=== PATIENT | male | born 1940 | race Caucasian/White ===

== ENCOUNTER 2021-09-08 22:23 | Inpatient (IN) | payer MEDICARE ==
[~2021-09-08] VITALS: Ht 182.9 cm; Wt 124.0 kg
--- NOTE | 2021-09-08 22:35 | PHYS DOC ---
Past Medical History Past Medical History: A-Fib, CHF, COPD Past Surgical History: No Surgical History Smoking Status: Heavy Tobacco Smoker Alcohol Use: None Drug Use: None General Adult EDM: Chief Complaint: SHORTNESS OF BREATH HPI: HPI: 81 year old male with history of COPD, CHF, not on supplemental O2 at home presents complaining of shortness of breath over the past 4 days along with cough that has been dry which is atypical for him, he states he usually has a productive cough at baseline and he is easily able to clear his throat but his cough changed recently to more of a dry cough where he feels he "can't get his secretions out". He was found to be hypoxic to 80% on RA in the field and was placed on a NRB by EMS in the field raising his SPO2 up to mid 90s. He has never been admitted for his COPD in the past. The patient denies nausea, vomiting, fever, chills, chest pain, abdominal pain, urinary symptoms, recent trauma, or any other complaints. Review of Systems: Review of Systems: Constitutional: Negative except what was mentioned in HPI. Eyes: Negative except what was mentioned in HPI. HENT: Negative except what was mentioned in HPI. Respiratory: Negative except what was mentioned in HPI. Cardiovascular: Negative except what was mentioned in HPI. GI: Negative except what was mentioned in HPI. : Negative except what was mentioned in HPI. Musculoskeletal: Negative except what was mentioned in HPI. Integument: Negative except what was mentioned in HPI. Neurologic: Negative except what was mentioned in HPI. Endocrine: Negative except what was mentioned in HPI. Lymphatic: Negative except what was mentioned in HPI. Psychiatric: Negative except what was mentioned in HPI. Heart Score: C/O Chest Pain: No Family History: Family History: Noncontributory Allergies: Allergies: Allergies Coded Allergies Type Severity Reaction Last Updated Verified NSAIDS (Non-Steroidal Anti-Inflamma Allergy Intermediate 09/08/21 Yes [id number]-[id number]-YrD Reductase Inhibitor Allergy Intermediate 09/08/21 Yes fish oil Allergy Intermediate 09/08/21 Yes Physical Exam: PE: Constitutional: No acute distress, non-toxic appearance. HENT: Atraumatic, bilateral external ears normal, nose normal. Eyes: PERRLA, EOMI, conjunctiva normal, no discharge. Neck: Normal range of motion, supple, no stridor. Cardiovascular: Heart rate regular rhythm. 2+ radial pulses Lungs & Thorax: Moderate respiratory distress, symmetrical expansion, rhonchi appreciated bilateral wheeze on expiration. Abdomen: Soft, no tenderness Skin: Warm, dry. Extremities: No tenderness, no cyanosis, ROM intact, no edema. Neurologic: Alert and oriented x3, no focal deficits. Psychologic: Affect normal, judgment normal, mood normal. Current Patient Data: Labs: Laboratory Tests Test 09/08/21 23:10 09/09/21 01:00 09/09/21 01:40 09/09/21 02:00 O2 Saturation 92 % (92-99) Arterial Blood pH 7.44 (7.35-7.45) Arterial Blood pCO2 at Patient Temp 34 mmHg (35-46) Arterial Blood pO2 at Patient Temp 62 mmHg (65-108) Arterial Blood HCO3 22 mmol/L (21-28) Arterial Blood Base Excess -1 mmol/L (-3-3) FiO2 28 White Blood Count 9.7 x10^3/uL (4.0-11.0) Red Blood Count 4.47 x10^6/uL (4.30-5.70) Hemoglobin 14.9 g/dL (13.0-17.5) Hematocrit 44.0 % (39.0-53.0) Mean Corpuscular Volume 99 fL (79-100) Mean Corpuscular Hemoglobin 33 pg (25-35) Mean Corpuscular Hemoglobin Concent 34 g/dL (31-37) Red Cell Distribution Width 16.4 % (11.5-14.5) Platelet Count 258 x10^3/uL (140-400) Neutrophils (%) (Auto) 72 % (31-73) Lymphocytes (%) (Auto) 18 % (24-48) Monocytes (%) (Auto) 10 % (0-9) Eosinophils (%) (Auto) 0 % (0-3) Basophils (%) (Auto) 0 % (0-3) Neutrophils # (Auto) 6.9 x10^3/uL (1.8-7.7) Lymphocytes # (Auto) 1.7 x10^3/uL (1.0-4.8) Monocytes # (Auto) 0.9 x10^3/uL (0.0-1.1) Eosinophils # (Auto) 0.0 x10^3/uL (0.0-0.7) Basophils # (Auto) 0.0 x10^3/uL (0.0-0.2) D-Dimer (Kaylin) 0.54 ug/mlFEU (0.00-0.50) Sodium Level 141 mmol/L (136-145) Potassium Level 4.1 mmol/L (3.5-5.1) Chloride Level 107 mmol/L (98-107) Carbon Dioxide Level 27 mmol/L (21-32) Anion Gap 7 (6-14) Blood Urea Nitrogen 19 mg/dL (8-26) Creatinine 1.4 mg/dL (0.7-1.3) Estimated GFR (Cockcroft-Gault) 48.9 Glucose Level 172 mg/dL (70-99) Lactic Acid Level 2.9 mmol/L (0.4-2.0) Calcium Level 8.5 mg/dL (8.5-10.1) GL-Kfs-U-Type Natriuretic Peptide 1908 pg/mL (0-449) Influenza Type A Antigen Negative (NEGATIVE) Influenza Type B Antigen Negative (NEGATIVE) SARS-CoV-2 Antigen (Rapid) Negative (NEGATIVE) Vital Signs: Vital Signs Date Time Temp Pulse Resp B/P (MAP) Pulse Ox O2 Delivery O2 Flow Rate FiO2 09/08/21 23:15 90 Nasal Cannula 2.0 EKG: EKG: Normal sinus rhythm rate of 87, right bundle branch block, occasional PVC. Impression: No STEMI interpreted by meJose D.O. Radiology/Procedures: Radiology/Procedures: EXAM: AP View of the chest DATE: 09/08/2021 10:33 PM INDICATION: Reason: shortness of breath / Spl. Instructions: / History: COMPARISON: No Prior FINDINGS: Heart is mildly enlarged. Aorta is tortuous. Diffuse bilateral lung base airspace opacities. Small pleural effusions. No pneumothorax. IMPRESSION: Diffuse bilateral parenchymal airspace opacities likely consolidative process such as pneumonia. Electronically signed by: Diego Patel MD (09/08/2021 11:02 PM) Course & Med Decision Making: Course & Med Decision Making Patient with new supplemental oxygen requirement, evidence for pneumonia on x- ray, will start antibiotics and admit him to the hospital. He is on a CPAP at night. He is stable clinically on oxygen with sats that are appropriate for his level of COPD. Labs were delayed secondary to another critical patient arriving. Age-adjusted D-dimer was negative Lactic acidosis likely secondary to hypoxia, fluids withheld secondary to patient tolerance with history of CHF My Orders - JOSE POOL DO Procedure Category Date Status Time Cbc W Autodiff LAB 09/08/21 Logged 22:29 Basic Metabolic Panel LAB 09/08/21 Logged 22:29 D-Dimer LAB 09/08/21 Logged 22:29 Nt-Pro Bnp LAB 09/08/21 Logged 22:29 12 Lead Ekg EKG 09/08/21 Logged 22:29 Chest Ap Only RAD 09/08/21 Resulted 22:29 Arterial Puncture RT 09/08/21 Complete Withdraw Bld Abg Only LAB 09/08/21 Logged 22:29 Albuterol Neb Soln PHA 09/08/21 Complete (Ventolin Neb Soln) 23:00 Ipratrpium/Albuterol PHA 09/08/21 Complete 0.5/2.5mg (Duoneb) 23:00 Prednisone PHA 09/08/21 Complete (Prednisone) 23:00 Pulse Oximetry: NASRA 09/08/21 In Process Standing Order 22:29 Airway Inhalation RT 09/08/21 Complete Treatment 22:29 Airway Inhalation RT 09/08/21 Complete Treatment 22:29 Sars Cov2 (Tiara) LAB 09/08/21 Logged 22:30 Sars Antigen Yola Rapid LAB 09/08/21 Logged 22:30 Influenza A&B Rapid LAB 09/08/21 Logged 22:30 Ceftriaxone Iv Push PHA 09/09/21 In Process (Rocephin) 01:00 Azithrmycn 500mg Ivpb PHA 09/09/21 In Process For Omni (Zithroma 01:00 Lactic Acid With LAB 09/09/21 Logged Reflex 00:30 Blood Culture EVELYNE 09/09/21 Logged 00:30 [place] Order ADT 09/09/21 Transmitted 00:52 Code Status CODE 09/09/21 Transmitted 00:52 Vital Signs, Per Unit NASRA 09/09/21 In Process Protocol 00:52 Cardiac DIET 09/09/21 Transmitted Breakfast Ambulate With NASRA 09/09/21 In Process Assistance 00:52 Ondansetron Pf PHA 09/09/21 In Process (Zofran) 01:00 Acetaminophen PHA 09/09/21 In Process (Tylenol) 01:00 Consult Physician By CONS 09/09/21 Transmitted Name 00:52 Food Preservation Scientist NASRA 09/09/21 In Process 00:52 Vital Signs Q4h NASRA 09/09/21 In Process 00:52 Cpap W/Titration RT 09/09/21 Logged May Use Home NASRA 09/09/21 In Process Cpap/Bipap 00:52 Departure Departure Impression: Primary Impression: Pneumonia Disposition: ADMITTED INPATIENT Admitting Physician: CASTRO Blake) Condition: STABLE Referrals: UNKNOWN PCP NAME (PCP) JOSE POOL DO Sep 08, 2021 22:35
[2021-09-08] MEDS: predniSONE 10 MG TABLET PO ONE (23:00)
[2021-09-08] MEDS ORDERED: IPRATRPIUM/ALBUTEROL 0.5/2.5MG 3 ML NEBU. NEB ONE (23:00)
[2021-09-08] MEDS ORDERED: ALBUTEROL SULFATE 2.5 MG/3 ML NEBU. NEB ONE (23:00)
--- NOTE | 2021-09-08 23:04 | RAD ---
EXAM: AP View of the chest DATE: 09/08/2021 10:33 PM INDICATION: Reason: shortness of breath / Spl. Instructions: / History: COMPARISON: No Prior FINDINGS: Heart is mildly enlarged. Aorta is tortuous. Diffuse bilateral lung base airspace opacities. Small pleural effusions. No pneumothorax. IMPRESSION: Diffuse bilateral parenchymal airspace opacities likely consolidative process such as pneumonia. Electronically signed by: Diego Patel MD (09/08/2021 11:02 PM) EMMETT
[2021-09-09] MEDS ORDERED: AZITHRMYCN 500MG IVPB FOR OMNI 250 ML IV ONE (01:00)
[2021-09-09] MEDS ORDERED: ONDANSETRON PF 4 MG/2 ML VIAL. IVP PRN ×2 (01:00→09:15)
[2021-09-09] MEDS ORDERED: cefTRIAXone IV Push 1 GM VIAL. IVP ONE (01:00)
[2021-09-09] MEDS ORDERED: ACETAMINOPHEN 325 MG TABLET. PO PRN (01:00)
--- NOTE | 2021-09-09 01:00 | EKG ---
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
[2021-09-09 01:40] LABS: BASO % 0 % (0-3); EOS % 0 % (0-3); HEMOGLOBIN 14.9 g/dL (13.0-17.5); LYMPH # 1.7 x10^3/uL (1.0-4.8); LYMPH % 18 % (24-48); MEAN CORPUSCULAR HEMOGLOBIN 33 pg (25-35); MEAN CORPUSCULAR HGB CONC 34 g/dL (31-37); MEAN CORPUSCULAR VOLUME 99 fL (79-100); MONO # 0.9 x10^3/uL (0.0-1.1); MONO % 10 % (0-9); NEUT # 6.9 x10^3/uL (1.8-7.7); NEUT % 72 % (31-73); PLATELET COUNT 258 x10^3/uL (140-400); RED BLOOD COUNT 4.47 x10^6/uL (4.30-5.70); RED CELL DISTRIBUTION WIDTH 16.4 % (11.5-14.5); WHITE BLOOD COUNT 9.7 x10^3/uL (4.0-11.0)
[2021-09-09 02:13] LABS: INFLUENZA A PATIENT NEGATIVE (NEGATIVE); INFLUENZA B PATIENT NEGATIVE (NEGATIVE)
[2021-09-09 02:26] LABS: CALCIUM 8.5 mg/dL (8.5-10.1); CREATININE 1.4 mg/dL (0.7-1.3); GFR 48.9; POTASSIUM 4.1 mmol/L (3.5-5.1)
[2021-09-09] MEDS ORDERED: predniSONE 10 MG TABLET PO ONE (02:30)
[2021-09-09 03:00] VITALS: BP 161/63
[2021-09-09 03:01] LABS: BASE EXCESS ABG -1 mmol/L (-3-3); FIO2 ABG 28; HCO3 ABG 22 mmol/L (21-28); PCO2 ABG 34 mmHg (35-46); PO2 ABG 62 mmHg (65-108); SAT O2 ABG 92 % (92-99)
[2021-09-09 07:00] VITALS: BP 153/82
[2021-09-09] MEDS ORDERED: UMEC1DIS IH (07:43)
[2021-09-09] MEDS ORDERED: COLC0.6T34 PO (07:43)
[2021-09-09] MEDS ORDERED: EVOL140P3 SQ (07:43)
[2021-09-09] MEDS ORDERED: ALLO300T PO (07:43)
[2021-09-09] MEDS ORDERED: TELM80TA PO (07:43)
[2021-09-09] MEDS ORDERED: TRAM50TA PO (07:43)
[2021-09-09] MEDS ORDERED: GLIP5TAB10 PO (07:43)
[2021-09-09] MEDS ORDERED: GABA300C18 PO (07:43)
[2021-09-09] MEDS ORDERED: PROAIR RESPICL90 MCG IH (07:43)
[2021-09-09] MEDS ORDERED: LIRA0.6P2 SQ (07:43)
[2021-09-09] MEDS ORDERED: GLIP10TA13 PO (07:43)
[2021-09-09] MEDS ORDERED: traMADol 50 MG TABLET PO PRN (09:15)
[2021-09-09] MEDS ORDERED: ZOLPIDEM 5 MG TABLET. PO PRN (09:15)
[2021-09-09] MEDS ORDERED: ELECTROLYTE (NON-ICU) PROTOCOL. MC PRN (09:15)
[2021-09-09] MEDS ORDERED: CALCIUM CARBONATE 500 MG TAB.CHEW PO PRN (09:15)
[2021-09-09] MEDS ORDERED: guaiFENesin/CODEINE 100mg/10mg 5 ML LIQUID PO PRN (09:15)
[2021-09-09] MEDS ORDERED: FUROSEMIDE 40 MG/4 ML VIAL. IVP ONE ×2 (09:30→14:00)
[2021-09-09] MEDS ORDERED: DEXTROSE 50% 25 GM / 50ML DISP.SYRIN. IV PRN (09:30)
[2021-09-09] MEDS: predniSONE 20 MG TABLET PO SCH (09:41)
[2021-09-09] MEDS: ACETAMINOPHEN 325 MG TABLET. PO PRN ×2 (09:42→23:54)
--- NOTE | 2021-09-09 09:42 | PDOC1 ---
History and Physical Date of Service: DOS: DATE: 09/09/21 TIME: 09:26 Chief Complaint: Problems: (1) Pneumonia Chief Complain: Shortness of breath History of Present Illness: HPI: This patient is 81-year-old white male presented to the emergency room overnight due to worsening shortness of breath for the past 4 to 5 days. Patient has a long tobacco use history he still does smoke and has history of COPD, uses CPAP at night; said he does have a chronically productive cough that usually does not bother him. However he said with this current cough there is more productivity to where he is having trouble handling some of his secretions. He denies any home oxygen but felt like he could not catch his breath at home yesterday. Contacted EMS found him saturating 80% on room air in the field was brought in and nonrebreather brought him up in the 90s. Denies any history of COPD e xacerbations he knows of. Reports compliance with inhalers. Received Covid vaccine both Moderna I evaluated the patient this morning and he was resting in bed on 2 L nasal cannula. He was doing well did not have any major complaints. Was requesting to get a line to cant hooker his CPAP so he could take a nap. Says he is unable to sleep without his CPAP. He is denying any fever chills, dizziness, vision changes, chest pain, abdominal pain, dysuria. Did notice on his chart there was a history of A. fib documented but patient not on any sort of rate control rhythm control or anticoagulation. When I asked him about it he said he thinks he was told he had A. fib in the past wants but never really followed up on it. Telemetry here I cannot see any A. fib. Past Medical/Surgical History: PMH/PSH: COPD, CHF, possible history of A. fib? Type 2 diabetes Allergies: Allergies: Coded Allergies: NSAIDS (Non-Steroidal Anti-Inflamma (Verified Allergy, Intermediate, 09/08/21) [id number] Reductase Inhibitor (Verified Allergy, Intermediate, 09/08/21) fish oil (Verified Allergy, Intermediate, 09/08/21) Family History: Family History: Reviewed with patient he reports hypertension throughout his whole family Social History: Social History: Daily tobacco use or smoking. Denies alcohol or drug use Current Medications: Current Medications Current Medications Albuterol Sulfate (Ventolin Neb Soln) 2.5 mg 1X ONCE NEB Last administered on 09/08/21at 23:00; Start 09/08/21 at 23:00; Stop 09/08/21 at 23:01; Status DC Albuterol/ Ipratropium (Duoneb) 3 ml 1X ONCE NEB Last administered on 09/08/21at 23:00; Start 09/08/21 at 23:00; Stop 09/08/21 at 23:01; Status DC Prednisone (Prednisone) 50 mg 1X ONCE PO Last administered on 09/08/21at 23:00; Start 09/08/21 at 23:00; Stop 09/08/21 at 23:01; Status DC Ceftriaxone Sodium (Rocephin) 2 gm 1X ONCE IVP Last administered on 09/09/21at 01:34; Start 09/09/21 at 01:00; Stop 09/09/21 at 01:01; Status DC Azithromycin 250 ml @ 250 mls/hr 1X ONCE IV Last administered on 09/09/21at 01:34; Start 09/09/21 at 01:00; Stop 09/09/21 at 01:59; Status DC Ondansetron HCl (Zofran) 4 mg PRN Q8HRS PRN IVP NAUSEA/VOMITING 1ST CHOICE; Start 09/09/21 at 01:00; Stop 09/09/21 at 09:11; Status DC Acetaminophen (Tylenol) 650 mg PRN Q4HRS PRN PO FEVER > 100.3'F; Start 09/09/21 at 01:00; Stop 09/10/21 at 00:59 Prednisone (Prednisone) 50 mg 1X ONCE PO Last administered on 09/09/21at 02:23; Start 09/09/21 at 02:30; Stop 09/09/21 at 02:31; Status DC Ampicillin Sodium/ Sulbactam Sodium 3 gm/Sodium Chloride 100 ml @ 200 mls/hr Q6HRS IV ; Start 09/09/21 at 12:00 Doxycycline Hyclate (Vibra-Tab) 100 mg BID PO ; Start 09/09/21 at 10:00 Albuterol/ Ipratropium (Duoneb) 3 ml RTQID NEB ; Start 09/09/21 at 12:00 Guaifenesin/ Codeine Phosphate (Robitussin Ac) 5 ml PRN Q6HRS PRN PO COUGH; Start 09/09/21 at 09:15 Prednisone (Prednisone) 40 mg DAILY PO ; Start 09/09/21 at 09:30 Allopurinol (Zyloprim) 300 mg DAILY PO ; Start 09/09/21 at 09:30 Gabapentin (Neurontin) 300 mg TID PO ; Start 09/09/21 at 09:30 Tramadol HCl (Ultram) 50 mg TID PRN PRN PO PAIN; Start 09/09/21 at 09:15 Losartan Potassium (Cozaar) 100 mg DAILY PO ; Start 09/09/21 at 09:30 Non-Formulary Medication (Umeclidinium Brm/Vilanterol Tr (Anoro Ellipta 62.5-25 Mcg Inh)) 1 each DAILY IH ; Start 09/10/21 at 09:00; Status UNV Ondansetron HCl (Zofran) 4 mg PRN Q6HRS PRN IVP NAUSEA/VOMITING; Start 09/09/21 at 09:15 Calcium Carbonate/ Glycine (Tums) 500 mg PRN Q3HRS PRN PO UPSET STOMACH; Start 09/09/21 at 09:15 Zolpidem Tartrate (Ambien) 5 mg PRN QHS PRN PO INSOMNIA, MAY REPEAT IN 1HR; Start 09/09/21 at 09:15 Info (Non-Icu Electrolyte Protocol) 1 ea PRN DAILY PRN MC SEE COMMENTS; Start 09/09/21 at 09:15 Acetaminophen (Tylenol) 650 mg PRN Q6HRS PRN PO Headaches, Temp > 101.5F; Start 09/09/21 at 09:15 Senna/Docusate Sodium (Senna Plus) 1 tab BID PO ; Start 09/09/21 at 09:30 Heparin Sodium (Porcine) (Heparin Sodium) 5,000 unit Q8HRS SQ ; Start 09/09/21 at 14:00 Active Scripts Active Reported Victoza 3-Chintan (Liraglutide) 0.6 Mg/0.1 Ml Pen.injctr 1.8 Mg SQ DAILY Tramadol Hcl 50 Mg Tablet 50 Mg PO TID PRN PRN Micardis (Telmisartan) 80 Mg Tablet 80 Mg PO DAILY Repatha Sureclick (Evolocumab) 140 Mg/1 Ml Pen.injctr 140 Mg SQ Q2WKS Glipizide 5 Mg Tablet 5 Mg PO DAILYWSUP Glipizide 10 Mg Tablet 10 Mg PO DAILY08 Gabapentin (Gabapentin) 300 Mg Capsule 300 Mg PO TID Colcrys (Colchicine) 0.6 Mg Tablet 0.6 Mg PO PRN DAILY PRN Anoro Ellipta 62.5-25 Mcg Inh (Umeclidinium Brm/Vilanterol Tr) 1 Each Disk.w.dev 1 Each IH DAILY Allopurinol 300 Mg Tablet 300 Mg PO DAILY Proair Respiclick (Albuterol Sulfate) 90 Mcg Aer.pow.ba 2 Puff IH PRN Q4HRS PRN ROS: Review of Systems Review of System Unless noted above 14 point review of systems was negative Physical Exam: Vital Signs: Vital Signs Date Time Temp Pulse Resp B/P (MAP) Pulse Ox O2 Delivery O2 Flow Rate FiO2 09/09/21 07:30 Nasal Cannula 2.0 09/09/21 07:00 97.8 77 16 153/82 (105) 95 97.8 Physcial Exam: GEN: No apparent distress. Alert and oriented HEENT: Normal cephalic, atraumatic, external auditory canals are patent EYES: Extraocular muscles are intact, pupil are equally round and reactive to light and accommodation MUSCULOSKELETAL: Well developed , well nourished, range of motion limited by habitus ENDOCRINE: No thyromegaly was palpated LYMPHATICS: No cervical chain or axillary nodes were noted HEMATOPOIETIC: No bruising NECK: Supple, no JVD, no thyromegaly was noted LUNGS: Coarse breath sounds decreased air entry in bilateral basilar areas HEART: RRR, S1, S2 present. Peripheral pulses intact, no obvious murmurs noted ABDOMEN: Soft, nontender. Positive bowel sounds, no organomegaly, normal bowel sounds EXTREMITIES: Without clubbing, cyanosis, or edema. Pedal pulses intact. NEUROLOGIC: Normal speech and tone. A&O x 3, moves all extremities, no obvious focal deficits PSYCHIATRIC: Normal affect, normal mood. Stable SKIN: No ulcerations or rashes, good skin turgor, no jaundice VASCULAR: Good capillary refill, neurovascular bundle appears to be intact Labs: Labs: Laboratory Tests Test 09/08/21 23:10 09/09/21 01:00 09/09/21 01:40 09/09/21 02:00 O2 Saturation 92 % (92-99) Arterial Blood pH 7.44 (7.35-7.45) Arterial Blood pCO2 at Patient Temp 34 mmHg (35-46) Arterial Blood pO2 at Patient Temp 62 mmHg (65-108) Arterial Blood HCO3 22 mmol/L (21-28) Arterial Blood Base Excess -1 mmol/L (-3-3) FiO2 28 White Blood Count 9.7 x10^3/uL (4.0-11.0) Red Blood Count 4.47 x10^6/uL (4.30-5.70) Hemoglobin 14.9 g/dL (13.0-17.5) Hematocrit 44.0 % (39.0-53.0) Mean Corpuscular Volume 99 fL (79-100) Mean Corpuscular Hemoglobin 33 pg (25-35) Mean Corpuscular Hemoglobin Concent 34 g/dL (31-37) Red Cell Distribution Width 16.4 % (11.5-14.5) Platelet Count 258 x10^3/uL (140-400) Neutrophils (%) (Auto) 72 % (31-73) Lymphocytes (%) (Auto) 18 % (24-48) Monocytes (%) (Auto) 10 % (0-9) Eosinophils (%) (Auto) 0 % (0-3) Basophils (%) (Auto) 0 % (0-3) Neutrophils # (Auto) 6.9 x10^3/uL (1.8-7.7) Lymphocytes # (Auto) 1.7 x10^3/uL (1.0-4.8) Monocytes # (Auto) 0.9 x10^3/uL (0.0-1.1) Eosinophils # (Auto) 0.0 x10^3/uL (0.0-0.7) Basophils # (Auto) 0.0 x10^3/uL (0.0-0.2) D-Dimer (Kaylin) 0.54 ug/mlFEU (0.00-0.50) Sodium Level 141 mmol/L (136-145) Potassium Level 4.1 mmol/L (3.5-5.1) Chloride Level 107 mmol/L (98-107) Carbon Dioxide Level 27 mmol/L (21-32) Anion Gap 7 (6-14) Blood Urea Nitrogen 19 mg/dL (8-26) Creatinine 1.4 mg/dL (0.7-1.3) Estimated GFR (Cockcroft-Gault) 48.9 Glucose Level 172 mg/dL (70-99) Lactic Acid Level 2.9 mmol/L (0.4-2.0) Calcium Level 8.5 mg/dL (8.5-10.1) JK-Mht-J-Type Natriuretic Peptide 1908 pg/mL (0-449) Influenza Type A Antigen Negative (NEGATIVE) Influenza Type B Antigen Negative (NEGATIVE) SARS-CoV-2 Antigen (Rapid) Negative (NEGATIVE) Test 09/09/21 04:50 09/09/21 07:15 Lactic Acid Level 2.5 mmol/L (0.4-2.0) Glucose (Fingerstick) 220 mg/dL (70-99) Laboratory Tests Test 09/08/21 23:10 09/09/21 01:00 09/09/21 01:40 09/09/21 02:00 O2 Saturation 92 % (92-99) Arterial Blood pH 7.44 (7.35-7.45) Arterial Blood pCO2 at Patient Temp 34 mmHg (35-46) Arterial Blood pO2 at Patient Temp 62 mmHg (65-108) Arterial Blood HCO3 22 mmol/L (21-28) Arterial Blood Base Excess -1 mmol/L (-3-3) FiO2 28 White Blood Count 9.7 x10^3/uL (4.0-11.0) Red Blood Count 4.47 x10^6/uL (4.30-5.70) Hemoglobin 14.9 g/dL (13.0-17.5) Hematocrit 44.0 % (39.0-53.0) Mean Corpuscular Volume 99 fL (79-100) Mean Corpuscular Hemoglobin 33 pg (25-35) Mean Corpuscular Hemoglobin Concent 34 g/dL (31-37) Red Cell Distribution Width 16.4 % (11.5-14.5) Platelet Count 258 x10^3/uL (140-400) Neutrophils (%) (Auto) 72 % (31-73) Lymphocytes (%) (Auto) 18 % (24-48) Monocytes (%) (Auto) 10 % (0-9) Eosinophils (%) (Auto) 0 % (0-3) Basophils (%) (Auto) 0 % (0-3) Neutrophils # (Auto) 6.9 x10^3/uL (1.8-7.7) Lymphocytes # (Auto) 1.7 x10^3/uL (1.0-4.8) Monocytes # (Auto) 0.9 x10^3/uL (0.0-1.1) Eosinophils # (Auto) 0.0 x10^3/uL (0.0-0.7) Basophils # (Auto) 0.0 x10^3/uL (0.0-0.2) D-Dimer (Kaylin) 0.54 ug/mlFEU (0.00-0.50) Sodium Level 141 mmol/L (136-145) Potassium Level 4.1 mmol/L (3.5-5.1) Chloride Level 107 mmol/L (98-107) Carbon Dioxide Level 27 mmol/L (21-32) Anion Gap 7 (6-14) Blood Urea Nitrogen 19 mg/dL (8-26) Creatinine 1.4 mg/dL (0.7-1.3) Estimated GFR (Cockcroft-Gault) 48.9 Glucose Level 172 mg/dL (70-99) Lactic Acid Level 2.9 mmol/L (0.4-2.0) Calcium Level 8.5 mg/dL (8.5-10.1) PQ-Icv-T-Type Natriuretic Peptide 1908 pg/mL (0-449) Influenza Type A Antigen Negative (NEGATIVE) Influenza Type B Antigen Negative (NEGATIVE) SARS-CoV-2 Antigen (Rapid) Negative (NEGATIVE) Test 09/09/21 04:50 09/09/21 07:15 Lactic Acid Level 2.5 mmol/L (0.4-2.0) Glucose (Fingerstick) 220 mg/dL (70-99) Assessment/Plan Assessment/Plan Community-acquired pneumonia suspect bacterial gram-positive versus gram- negative, COPD CHF with some fluid overload on exam, questionable history of atrial fibrillation, type 2 diabetes, JOSI -4 days worsening shortness of breath. Hypoxic at home. Presents with fever imaging consistent with pneumonia -Received Rocephin and azithromycin in emergency room. Will start Unasyn doxy. Also give breathing treatments as needed cough medicine -Given COPD history could be some acute exacerbation as well. Will restart home inhalers and give prednisone burst. Pulmonary consult -Patient patient does have fluid overload on exam. Do not see an echo in our system for EF. Will order one for here. Even with mildly elevated creatinine will try one-time dose 40 IV Lasix. -Given history of CHF and possible A. fib will give cardiology consult -Patient on all oral meds at home for diabetes. Will do sliding scale and long- acting here and can schedule premeal once daily insulin requirement. -Other home meds resumed as indicated -DVT prophylaxis -Plan of care discussed bedside RN. -Provided 11 minutes of tobacco cessation counseling. Justifications for Admission Other Justification ARASH CRANE MD Sep 09, 2021 09:42
[2021-09-09] MEDS: GABAPENTIN 300 MG CAPSULE. PO SCH ×3 (09:43→22:10)
[2021-09-09] MEDS: SENNOSIDES/DOCUSATE 8.6/50MG TABLET. PO SCH ×2 (09:43→22:10)
[2021-09-09] MEDS: LOSARTAN POTASSIUM 50 MG TABLET. PO SCH (09:43)
[2021-09-09] MEDS: DOXYCYCLINE HYCLATE 100 MG TABLET PO SCH ×2 (09:43→22:10)
[2021-09-09] MEDS: ALLOPURINOL 300 MG TABLET. PO SCH (09:43)
[2021-09-09 11:00] VITALS: BP 166/72
--- NOTE | 2021-09-09 11:14 | PDOC ---
PULMONARY PROGRESS NOTES DATE: 09/09/21 TIME: 11:13 Vitals Vital Signs Date Time Temp Pulse Resp B/P (MAP) Pulse Ox O2 Delivery O2 Flow Rate FiO2 09/09/21 09:43 77 153/82 09/09/21 07:30 Nasal Cannula 2.0 09/09/21 07:00 97.8 16 95 97.8 Labs Laboratory Tests Test 09/08/21 23:10 09/09/21 01:00 09/09/21 01:40 09/09/21 02:00 O2 Saturation 92 % (92-99) Arterial Blood pH 7.44 (7.35-7.45) Arterial Blood pCO2 at Patient Temp 34 mmHg (35-46) Arterial Blood pO2 at Patient Temp 62 mmHg (65-108) Arterial Blood HCO3 22 mmol/L (21-28) Arterial Blood Base Excess -1 mmol/L (-3-3) FiO2 28 White Blood Count 9.7 x10^3/uL (4.0-11.0) Red Blood Count 4.47 x10^6/uL (4.30-5.70) Hemoglobin 14.9 g/dL (13.0-17.5) Hematocrit 44.0 % (39.0-53.0) Mean Corpuscular Volume 99 fL (79-100) Mean Corpuscular Hemoglobin 33 pg (25-35) Mean Corpuscular Hemoglobin Concent 34 g/dL (31-37) Red Cell Distribution Width 16.4 % (11.5-14.5) Platelet Count 258 x10^3/uL (140-400) Neutrophils (%) (Auto) 72 % (31-73) Lymphocytes (%) (Auto) 18 % (24-48) Monocytes (%) (Auto) 10 % (0-9) Eosinophils (%) (Auto) 0 % (0-3) Basophils (%) (Auto) 0 % (0-3) Neutrophils # (Auto) 6.9 x10^3/uL (1.8-7.7) Lymphocytes # (Auto) 1.7 x10^3/uL (1.0-4.8) Monocytes # (Auto) 0.9 x10^3/uL (0.0-1.1) Eosinophils # (Auto) 0.0 x10^3/uL (0.0-0.7) Basophils # (Auto) 0.0 x10^3/uL (0.0-0.2) D-Dimer (Kaylin) 0.54 ug/mlFEU (0.00-0.50) Sodium Level 141 mmol/L (136-145) Potassium Level 4.1 mmol/L (3.5-5.1) Chloride Level 107 mmol/L (98-107) Carbon Dioxide Level 27 mmol/L (21-32) Anion Gap 7 (6-14) Blood Urea Nitrogen 19 mg/dL (8-26) Creatinine 1.4 mg/dL (0.7-1.3) Estimated GFR (Cockcroft-Gault) 48.9 Glucose Level 172 mg/dL (70-99) Lactic Acid Level 2.9 mmol/L (0.4-2.0) Calcium Level 8.5 mg/dL (8.5-10.1) XV-Cqd-N-Type Natriuretic Peptide 1908 pg/mL (0-449) Influenza Type A Antigen Negative (NEGATIVE) Influenza Type B Antigen Negative (NEGATIVE) SARS-CoV-2 Antigen (Rapid) Negative (NEGATIVE) Test 09/09/21 04:50 09/09/21 07:15 Lactic Acid Level 2.5 mmol/L (0.4-2.0) Glucose (Fingerstick) 220 mg/dL (70-99) Laboratory Tests Test 09/08/21 23:10 09/09/21 01:00 09/09/21 01:40 09/09/21 02:00 O2 Saturation 92 % (92-99) Arterial Blood pH 7.44 (7.35-7.45) Arterial Blood pCO2 at Patient Temp 34 mmHg (35-46) Arterial Blood pO2 at Patient Temp 62 mmHg (65-108) Arterial Blood HCO3 22 mmol/L (21-28) Arterial Blood Base Excess -1 mmol/L (-3-3) FiO2 28 White Blood Count 9.7 x10^3/uL (4.0-11.0) Red Blood Count 4.47 x10^6/uL (4.30-5.70) Hemoglobin 14.9 g/dL (13.0-17.5) Hematocrit 44.0 % (39.0-53.0) Mean Corpuscular Volume 99 fL (79-100) Mean Corpuscular Hemoglobin 33 pg (25-35) Mean Corpuscular Hemoglobin Concent 34 g/dL (31-37) Red Cell Distribution Width 16.4 % (11.5-14.5) Platelet Count 258 x10^3/uL (140-400) Neutrophils (%) (Auto) 72 % (31-73) Lymphocytes (%) (Auto) 18 % (24-48) Monocytes (%) (Auto) 10 % (0-9) Eosinophils (%) (Auto) 0 % (0-3) Basophils (%) (Auto) 0 % (0-3) Neutrophils # (Auto) 6.9 x10^3/uL (1.8-7.7) Lymphocytes # (Auto) 1.7 x10^3/uL (1.0-4.8) Monocytes # (Auto) 0.9 x10^3/uL (0.0-1.1) Eosinophils # (Auto) 0.0 x10^3/uL (0.0-0.7) Basophils # (Auto) 0.0 x10^3/uL (0.0-0.2) D-Dimer (Kaylin) 0.54 ug/mlFEU (0.00-0.50) Sodium Level 141 mmol/L (136-145) Potassium Level 4.1 mmol/L (3.5-5.1) Chloride Level 107 mmol/L (98-107) Carbon Dioxide Level 27 mmol/L (21-32) Anion Gap 7 (6-14) Blood Urea Nitrogen 19 mg/dL (8-26) Creatinine 1.4 mg/dL (0.7-1.3) Estimated GFR (Cockcroft-Gault) 48.9 Glucose Level 172 mg/dL (70-99) Lactic Acid Level 2.9 mmol/L (0.4-2.0) Calcium Level 8.5 mg/dL (8.5-10.1) WS-Tiq-O-Type Natriuretic Peptide 1908 pg/mL (0-449) Influenza Type A Antigen Negative (NEGATIVE) Influenza Type B Antigen Negative (NEGATIVE) SARS-CoV-2 Antigen (Rapid) Negative (NEGATIVE) Test 09/09/21 04:50 09/09/21 07:15 Lactic Acid Level 2.5 mmol/L (0.4-2.0) Glucose (Fingerstick) 220 mg/dL (70-99) Medications Active Scripts Medications Dose Route/Sig Max Daily Dose Days Date Category Victoza 3-Chintan (Liraglutide) 0.6 Mg/0.1 Ml Pen.injctr 1.8 Mg SQ DAILY 09/09/21 Reported Tramadol Hcl 50 Mg Tablet 50 Mg PO TID PRN PRN 09/09/21 Reported Micardis (Telmisartan) 80 Mg Tablet 80 Mg PO DAILY 09/09/21 Reported Repatha Sureclick (Evolocumab) 140 Mg/1 Ml Pen.injctr 140 Mg SQ Q2WKS 09/09/21 Reported Glipizide 5 Mg Tablet 5 Mg PO DAILYWSUP 09/09/21 Reported Glipizide 10 Mg Tablet 10 Mg PO DAILY08 09/09/21 Reported Gabapentin (Gabapentin) 300 Mg Capsule 300 Mg PO TID 09/09/21 Reported Colcrys (Colchicine) 0.6 Mg Tablet 0.6 Mg PO PRN DAILY PRN 09/09/21 Reported Anoro Ellipta 62.5-25 Mcg Inh (Umeclidinium Brm/Vilanterol Tr) 1 Each Disk.w.dev 1 Each IH DAILY 09/09/21 Reported Allopurinol 300 Mg Tablet 300 Mg PO DAILY 09/09/21 Reported Proair Respiclick (Albuterol Sulfate) 90 Mcg Aer.pow.ba 2 Puff IH PRN Q4HRS PRN 09/09/21 Reported Impression . Acute hypoxemic respiratory failure Abnormal x-ray, suspect bacterial pneumonia possible Covid Acute exacerbation of COPD Obstructive sleep apnea Continue current support SHLOMO SANTIAGO MD Sep 09, 2021 11:14
[2021-09-09] MEDS: IPRATRPIUM/ALBUTEROL 0.5/2.5MG 3 ML NEBU. NEB SCH ×3 (11:43→19:15)
[2021-09-09] MEDS: AMPICILLIN/SULBACTAM 3 GM in IV NORMAL SALINE 100ML 100 ML IV SCH ×3 (12:39→23:40)
--- NOTE | 2021-09-09 12:39 | CONS ---
DATE OF CONSULTATION: 09/09/2021 ATTENDING PHYSICIAN: Tisha Rodriguez DO. REASON FOR CONSULTATION: The patient is seen in pulmonary consultation at the request of Dr. Arellano for increasing shortness of breath. HISTORY OF PRESENT ILLNESS: The patient is a 81-year-old with a history of COPD, does not utilize oxygen at home, has a CPAP for obstructive sleep apnea. He normally sees a director of instruction at [facility]. He has longstanding history of tobacco use, continues to smoke, presented with increasing shortness of breath, cough, mostly nonproductive. Denied any chest pain or pressure. EMS found him to have O2 saturations 80% on room air. He was transferred to the emergency department. His labs were reviewed. His white count was normal, hemoglobin and hematocrit were noted. Chest x-ray revealed evidence of hyperinflation with diffuse bilateral parenchymal opacities. He had a rapid test for COVID, which was negative. Nucleic amplification test is pending. His arterial blood gas revealed a pH of 7.44, PaCO2 of 34, pO2 of 62 on 28%. D-dimer was elevated. The patient denies any frequent acute exacerbations of COPD. Once again, he continues to smoke. PAST MEDICAL HISTORY: COPD, obstructive sleep apnea, chronic heart failure, type 2 diabetes, tobacco dependent. ALLERGIES: ANTI-INFLAMMATORY ALONG WITH STATINS. FAMILY HISTORY: Hypertension. SOCIAL HISTORY: He continues to smoke. REVIEW OF SYSTEMS: As indicated above, otherwise a 10-point system was reviewed and negative. CURRENT MEDICATIONS: List was reviewed. VACCINATION HISTORY: The patient is up to date on his vaccine. He had 2 doses of Moderna. PHYSICAL EXAMINATION: VITAL SIGNS: Since admission, he has been afebrile. He is currently on 2 liters of oxygen supplementation, saturations greater than 92%. HEENT: Eyes: The sclerae were nonicteric. NECK: Jugular venous distention was not elevated. No lymphadenopathy. CHEST: Full expansion. LUNGS: Expiratory wheeze. CARDIOVASCULAR: Regular rate and rhythm with S1, S2, no S3. ABDOMEN: Soft, obese. EXTREMITIES: No clubbing or cyanosis. Some edema. LABORATORY DATA: As indicated above. White count was normal. He did have a lymphopenia. Arterial blood gas revealing hypoxemia. Chest x-ray, bilateral pulmonary infiltrates. IMPRESSION: 1. Acute hypoxemic respiratory failure. 2. Possible COVID-19 viral pneumonia. 3. Acute exacerbation of chronic obstructive pulmonary disease. 4. Possible bacterial pneumonia. 5. Chronic heart failure. 6. Obstructive sleep apnea. 7. Tobacco dependent. 8. Obesity. PLAN: 1. Continue current support with antibiotics and steroids. 2. Follow up on nucleic amplification test for SARS-CoV-2. 3. Monitor blood sugars. 4. Oxygen supplementation. 5. DVT prophylaxis. GISSELLE/CONRAD DR: Millie TID: [id number]
[2021-09-09] MEDS: INSULIN LISPRO 300 UNITS/3 ML VIAL. SQ SCH ×2 (12:54→17:54)
--- NOTE | 2021-09-09 13:15 | PDOC2 ---
CARDIOLOGY CONSULT NOTE DATE OF SERVICE: DATE: 09/09/21 TIME: 13:08 CHIEF COMPLAINT: Shortness of air HPI: 81 y.o male with past medical history as noted below presents to the hospital in the setting of hypoxic resp failure. He is currently being evaluated for COVID PNA. Cardiology was consulted due to SOA and elevated BNP. He denies any specific CP or exertional angina. He has chronic dyspnea related to COPD. No syncope or palpitations. No recent CV interventions. PMHX: 1. COPD 2. Tobacco abuse 3. HTN 4. DM2 5. LEENA on CPAP SOCHX: +Tobacco abuse. FAMHX: NC CURRENT MEDS: Current Medications Medications (Trade) Dose Ordered Sig/Elizabeth Route PRN Reason Start Time Stop Time Status Last Admin Dose Admin Albuterol Sulfate (Ventolin Neb Soln) 2.5 mg 1X ONCE NEB 09/08/21 23:00 09/08/21 23:01 DC 09/08/21 23:00 Albuterol/ Ipratropium (Duoneb) 3 ml 1X ONCE NEB 09/08/21 23:00 09/08/21 23:01 DC 09/08/21 23:00 Prednisone (Prednisone) 50 mg 1X ONCE PO 09/08/21 23:00 09/08/21 23:01 DC 09/08/21 23:00 Ceftriaxone Sodium (Rocephin) 2 gm 1X ONCE IVP 09/09/21 01:00 09/09/21 01:01 DC 09/09/21 01:34 Azithromycin 250 ml @ 250 mls/hr 1X ONCE IV 09/09/21 01:00 09/09/21 01:59 DC 09/09/21 01:34 Prednisone (Prednisone) 50 mg 1X ONCE PO 09/09/21 02:30 09/09/21 02:31 DC 09/09/21 02:23 Ampicillin Sodium/ Sulbactam Sodium 3 gm/Sodium Chloride 100 ml @ 200 mls/hr Q6HRS IV 09/09/21 12:00 09/09/21 12:39 Doxycycline Hyclate (Vibra-Tab) 100 mg BID PO 09/09/21 10:00 09/09/21 09:43 Prednisone (Prednisone) 40 mg DAILY PO 09/09/21 09:30 09/09/21 09:41 Allopurinol (Zyloprim) 300 mg DAILY PO 09/09/21 09:30 09/09/21 09:43 Gabapentin (Neurontin) 300 mg TID PO 09/09/21 09:30 09/09/21 09:43 Losartan Potassium (Cozaar) 100 mg DAILY PO 09/09/21 09:30 09/09/21 09:43 Acetaminophen (Tylenol) 650 mg PRN Q6HRS PRN PO Headaches, Temp > 101.5F 09/09/21 09:15 09/09/21 09:42 Senna/Docusate Sodium (Senna Plus) 1 tab BID PO 09/09/21 09:30 09/09/21 09:43 Furosemide (Lasix) 40 mg 1X ONCE IVP 09/09/21 09:30 09/09/21 09:31 DC 09/09/21 09:43 Insulin Human Lispro (HumaLOG) 0-7 UNITS TIDWMEALS SQ 09/09/21 12:00 09/09/21 12:54 ALLERGIES: Allergies Coded Allergies Type Severity Reaction Last Updated Verified NSAIDS (Non-Steroidal Anti-Inflamma Allergy Intermediate 09/08/21 Yes [id number] Reductase Inhibitor Allergy Intermediate 09/08/21 Yes fish oil Allergy Intermediate 09/08/21 Yes ROS: Negative for 08/30 systems reviewed unless noted above in HPI PHYSICAL EXAM: Vital Signs/I&O: Vital Signs Date Time Temp Pulse Resp B/P (MAP) Pulse Ox O2 Delivery O2 Flow Rate FiO2 09/09/21 11:00 97.5 76 16 166/72 (103) 96 Nasal Cannula 2.0 97.5 I & O 09/08/21 09/08/21 09/09/21 15:00 23:00 07:00 Output Total 0 ml Balance 0 ml Physical Exam: GEN.: No apparent distress. Alert and oriented. HEENT: Head is normocephalic, atraumatic NECK: Supple. LUNGS: Decreased breath sounds bilaterally at the bases. HEART: RRR, S1, S2 present. Peripheral pulses intact ABDOMEN: Soft, nontender. Positive bowel sounds. EXTREMITIES: Without any cyanosis. NEUROLOGIC: Normal speech, normal tone PSYCHIATRIC: Normal affect, normal mood. SKIN: No ulcerations DIAGNOSTIC TESTING: Labs reviewed. Meds reviewed. EKG reviewed - No acute ischemic findings. ASSESSMENT: 1. Acute diastolic HF in the setting of severe hypoxia, possibly related to viral or bacterial PNA 2. COPD with continued tobacco abuse. 3. HTN - uncontrolled 4. LEENA on CPAP therapy. PLAN: 1. Continue treatment of pulmonary issues. 2. I have low suspicion for a primary ischemic process based on presentation and EKG but given risk factors, he merits outpatient evaluation. Check troponin. 3. Continue home losartan. We will follow along closely. Thank you. BERNARD PLASCENCIA MD Sep 09, 2021 13:15
[2021-09-09] MEDS: HEPARIN for SUB-Q USE 5,000 UNIT/ML VIAL. SQ SCH ×2 (14:56→23:06)
[2021-09-09 15:00] VITALS: BP 158/72
[2021-09-09 19:00] VITALS: BP 149/67
[2021-09-09] MEDS: LACTOBACILLUS RHAMNOSUS GG 1 CAPSULE. PO SCH (22:10)
[2021-09-09 23:00] VITALS: BP 131/60
[2021-09-09] MEDS: INSULIN GLARGINE SYRINGE. SQ SCH (23:06)
[2021-09-10 03:00] VITALS: BP 134/63
[2021-09-10] MEDS: AMPICILLIN/SULBACTAM 3 GM in IV NORMAL SALINE 100ML 100 ML IV SCH ×2 (05:57→12:30)
[2021-09-10] MEDS: HEPARIN for SUB-Q USE 5,000 UNIT/ML VIAL. SQ SCH ×3 (05:57→23:03)
[2021-09-10 07:00] VITALS: BP 149/74
[2021-09-10] MEDS: INSULIN LISPRO 300 UNITS/3 ML VIAL. SQ SCH ×2 (08:00→12:39)
[2021-09-10] MEDS: IPRATRPIUM/ALBUTEROL 0.5/2.5MG 3 ML NEBU. NEB SCH ×4 (08:00→20:19)
--- NOTE | 2021-09-10 08:38 | PDOC ---
PULMONARY PROGRESS NOTES DATE: 09/10/21 TIME: 08:38 Subjective Patient eating breakfast, feels better, not more short of air, Vitals Vital Signs Date Time Temp Pulse Resp B/P (MAP) Pulse Ox O2 Delivery O2 Flow Rate FiO2 09/10/21 07:00 97.6 67 17 149/74 (99) 97 BiPAP/CPAP 2.0 97.6 ROS: No Nausea, No Chest Pain, No Abdominal Pain, No Increase Cough Lungs: Crackles, Other (Crackles mainly in the base) Cardiovascular: S1, S2 Abdomen: Soft Neuro Exam: Alert Extremities: No Edema Skin: Warm Labs Laboratory Tests Test 09/08/21 23:10 09/09/21 01:00 09/09/21 01:40 09/09/21 02:00 O2 Saturation 92 % (92-99) Arterial Blood pH 7.44 (7.35-7.45) Arterial Blood pCO2 at Patient Temp 34 mmHg (35-46) Arterial Blood pO2 at Patient Temp 62 mmHg (65-108) Arterial Blood HCO3 22 mmol/L (21-28) Arterial Blood Base Excess -1 mmol/L (-3-3) FiO2 28 White Blood Count 9.7 x10^3/uL (4.0-11.0) Red Blood Count 4.47 x10^6/uL (4.30-5.70) Hemoglobin 14.9 g/dL (13.0-17.5) Hematocrit 44.0 % (39.0-53.0) Mean Corpuscular Volume 99 fL (79-100) Mean Corpuscular Hemoglobin 33 pg (25-35) Mean Corpuscular Hemoglobin Concent 34 g/dL (31-37) Red Cell Distribution Width 16.4 % (11.5-14.5) Platelet Count 258 x10^3/uL (140-400) Neutrophils (%) (Auto) 72 % (31-73) Lymphocytes (%) (Auto) 18 % (24-48) Monocytes (%) (Auto) 10 % (0-9) Eosinophils (%) (Auto) 0 % (0-3) Basophils (%) (Auto) 0 % (0-3) Neutrophils # (Auto) 6.9 x10^3/uL (1.8-7.7) Lymphocytes # (Auto) 1.7 x10^3/uL (1.0-4.8) Monocytes # (Auto) 0.9 x10^3/uL (0.0-1.1) Eosinophils # (Auto) 0.0 x10^3/uL (0.0-0.7) Basophils # (Auto) 0.0 x10^3/uL (0.0-0.2) D-Dimer (Kaylin) 0.54 ug/mlFEU (0.00-0.50) Sodium Level 141 mmol/L (136-145) Potassium Level 4.1 mmol/L (3.5-5.1) Chloride Level 107 mmol/L (98-107) Carbon Dioxide Level 27 mmol/L (21-32) Anion Gap 7 (6-14) Blood Urea Nitrogen 19 mg/dL (8-26) Creatinine 1.4 mg/dL (0.7-1.3) Estimated GFR (Cockcroft-Gault) 48.9 Glucose Level 172 mg/dL (70-99) Lactic Acid Level 2.9 mmol/L (0.4-2.0) Calcium Level 8.5 mg/dL (8.5-10.1) Troponin I Quantitative 0.237 ng/mL (0.000-0.055) VM-Dqs-Q-Type Natriuretic Peptide 1908 pg/mL (0-449) Influenza Type A Antigen Negative (NEGATIVE) Influenza Type B Antigen Negative (NEGATIVE) SARS-CoV-2 Antigen (Rapid) Negative (NEGATIVE) Test 09/09/21 04:50 09/09/21 07:15 09/09/21 11:43 09/09/21 17:02 Lactic Acid Level 2.5 mmol/L (0.4-2.0) Glucose (Fingerstick) 220 mg/dL (70-99) 258 mg/dL (70-99) 225 mg/dL (70-99) Test 09/09/21 18:10 09/09/21 20:19 09/10/21 07:26 Troponin I Quantitative 0.178 ng/mL (0.000-0.055) Glucose (Fingerstick) 229 mg/dL (70-99) 125 mg/dL (70-99) Laboratory Tests Test 09/09/21 11:43 09/09/21 17:02 09/09/21 18:10 09/09/21 20:19 Glucose (Fingerstick) 258 mg/dL (70-99) 225 mg/dL (70-99) 229 mg/dL (70-99) Troponin I Quantitative 0.178 ng/mL (0.000-0.055) Test 09/10/21 07:26 Glucose (Fingerstick) 125 mg/dL (70-99) Medications Active Scripts Medications Dose Route/Sig Max Daily Dose Days Date Category Victoza 3-Chintan (Liraglutide) 0.6 Mg/0.1 Ml Pen.injctr 1.8 Mg SQ DAILY 09/09/21 Reported Tramadol Hcl 50 Mg Tablet 50 Mg PO TID PRN PRN 09/09/21 Reported Micardis (Telmisartan) 80 Mg Tablet 80 Mg PO DAILY 09/09/21 Reported Repatha Sureclick (Evolocumab) 140 Mg/1 Ml Pen.injctr 140 Mg SQ Q2WKS 09/09/21 Reported Glipizide 5 Mg Tablet 5 Mg PO DAILYWSUP 09/09/21 Reported Glipizide 10 Mg Tablet 10 Mg PO DAILY08 09/09/21 Reported Gabapentin (Gabapentin) 300 Mg Capsule 300 Mg PO TID 09/09/21 Reported Colcrys (Colchicine) 0.6 Mg Tablet 0.6 Mg PO PRN DAILY PRN 09/09/21 Reported Anoro Ellipta 62.5-25 Mcg Inh (Umeclidinium Brm/Vilanterol Tr) 1 Each Disk.w.dev 1 Each IH DAILY 09/09/21 Reported Allopurinol 300 Mg Tablet 300 Mg PO DAILY 09/09/21 Reported Proair Respiclick (Albuterol Sulfate) 90 Mcg Aer.pow.ba 2 Puff IH PRN Q4HRS PRN 09/09/21 Reported Impression . IMPRESSION: 1. Acute hypoxemic respiratory failure. 2. Acute on chronic heart failure 3. Acute exacerbation of chronic obstructive pulmonary disease. 4. Possible bacterial pneumonia. 5. Chronic heart failure. 6. Obstructive sleep apnea. 7. Tobacco dependent. 8. Obesity. 9. SARS-CoV-2 testing, negative Plan . updated 09/10 Patient did well with IV Lasix, feels better Continue treatment of acute exacerbation of COPD Possible discharge in the a.m. Discussed with Dr. Escobar PLAN: 1. Continue current support with antibiotics and steroids. 2. Follow up on nucleic amplification test for SARS-CoV-2. 3. Monitor blood sugars. 4. Oxygen supplementation. 5. DVT prophylaxis. SHLOMO SANTIAGO MD Sep 10, 2021 08:38
[2021-09-10] MEDS ORDERED: NON FORMULARY ITEM (Umeclidinium Brm/Vilanterol Tr (Anoro Ellipta 62.5-25 Mcg Inh) 1 EACH) IH SCH (09:00)
[2021-09-10 09:40] LABS: ALBUMIN 2.9 g/dL (3.4-5.0); ALBUMIN/GLOBULIN RATIO 0.6 (1.0-1.7); CALCIUM 9.1 mg/dL (8.5-10.1); CREATININE 1.3 mg/dL (0.7-1.3); GFR 53.3; POTASSIUM 3.3 mmol/L (3.5-5.1); TOTAL BILIRUBIN 0.6 mg/dL (0.2-1.0); TOTAL PROTEIN 7.5 g/dL (6.4-8.2)
[2021-09-10] MEDS: LACTOBACILLUS RHAMNOSUS GG 1 CAPSULE. PO SCH ×2 (09:55→21:47)
[2021-09-10] MEDS: predniSONE 20 MG TABLET PO SCH (09:56)
[2021-09-10] MEDS: ALLOPURINOL 300 MG TABLET. PO SCH (09:56)
[2021-09-10] MEDS: LOSARTAN POTASSIUM 50 MG TABLET. PO SCH (09:56)
[2021-09-10] MEDS: DOXYCYCLINE HYCLATE 100 MG TABLET PO SCH ×2 (09:56→21:48)
[2021-09-10] MEDS: FUROSEMIDE 40 MG/4 ML VIAL. IVP SCH (09:57)
[2021-09-10] MEDS: GABAPENTIN 300 MG CAPSULE. PO SCH ×3 (09:57→21:48)
[2021-09-10] MEDS: SENNOSIDES/DOCUSATE 8.6/50MG TABLET. PO SCH ×2 (09:57→21:00)
[2021-09-10] MEDS ORDERED: PERFLUTREN PROTEIN-A MICROSPHR 0.22 MG/ML 3 ML VIAL. IV ONE (10:00)
[2021-09-10] MEDS: ACETAMINOPHEN 325 MG TABLET. PO PRN ×2 (10:09→21:48)
[2021-09-10 11:00] VITALS: BP 118/62
--- NOTE | 2021-09-10 12:53 | PDOC ---
[employer] PROGRESS NOTE Date of Service DOS: DATE: 09/10/21 TIME: 12:30 Chief Complaint Chief Complaint A/P: Acute respiratory failure with hypoxia - appears to be combination of acute diastolic CHF with acute exacerbation of COPD with bronchitis. Weaning O2 Acute COPD exacerbation -with bronchitis improving on doxycycline and steroids changed to prednisone continue aggressive nebulizers. Discussed with pulmonology has outpatient follow-up. Type 2 diabetes HTN - on losartan, added amlodipine and lasix per cardiology recs HLD CKD - notable outpatient. He gets his care at [facility], no baseline cr available. H/o afib - sinus currently, not on BB or CCB -4 days worsening shortness of breath. Hypoxic at home. Presents with fever imaging consistent with pneumonia -Received Rocephin and azithromycin in emergency room. Will start Unasyn doxy. Also give breathing treatments as needed cough medicine -Given COPD history could be some acute exacerbation as well. Will restart home inhalers and give prednisone burst. Pulmonary consult -Patient patient does have fluid overload on exam. Do not see an echo in our system for EF. Will order one for here. Even with mildly elevated creatinine will try one-time dose 40 IV Lasix. -Given history of CHF and possible A. fib will give cardiology consult -Patient on all oral meds at home for diabetes. Will do sliding scale and long- acting here and can schedule premeal once daily insulin requirement. -Other home meds resumed as indicated -DVT prophylaxis -Plan of care discussed bedside RN. -Provided 6 minutes of tobacco cessation counseling. History of Present Illness History of Present Illness Mr Clancy is 81-year-old male with PMHx DM2, smoker, COPD, LEENA on CPAP who presented to the emergency room due to worsening shortness of breath for the past 4 to 5 days. With this current cough there is more productivity to where he is having trouble handling some of his secretions. He denies any home oxygen but felt like he could not catch his breath at home despite using his newly prescribed LABA/ICS and albuterol inhalers. Contacted EMS found him saturating 80% on room air in the field was brought in and nonrebreather brought him up in the 90s. Denies any history of COPD exacerbations he knows of. Reports compliance with inhalers. Received Covid vaccine both Moderna. He was recently taken off diuretics. He is denying any fever chills, dizziness, vision changes, chest pain, abdominal pain, dysuria. Weaning down O2. Afebrile. Breathing improved with steroids and diuresis. weight from 127kg to 124kg. 1.4L UOP recorded, though patient has been voiding without measurement as well. He notes outpatient he has been using oxygen concentrator when he travels to [place] he frequently requires it. Vitals/I&O Vitals/I&O: Vital Signs Date Time Temp Pulse Resp B/P (MAP) Pulse Ox O2 Delivery O2 Flow Rate FiO2 09/10/21 11:52 95 Room Air 09/10/21 11:00 97.5 68 17 118/62 (80) 2.0 97.5 I & O 09/09/21 09/09/21 09/10/21 15:00 23:00 07:00 Output Total 300 ml 1100 ml Balance -300 ml -1100 ml Physical Exam General: Alert, Oriented X3, Cooperative Heart: Regular rate, Normal S1, Normal S2 Lungs: Wheezing, Crackles Abdomen: Normal bowel sounds, Soft Extremities: No clubbing, No cyanosis Skin: No rashes, No breakdown Labs Labs: Laboratory Tests Test 09/09/21 17:02 09/09/21 18:10 09/09/21 20:19 09/10/21 07:26 Glucose (Fingerstick) 225 mg/dL (70-99) 229 mg/dL (70-99) 125 mg/dL (70-99) Troponin I Quantitative 0.178 ng/mL (0.000-0.055) Test 09/10/21 08:50 09/10/21 11:02 Sodium Level 144 mmol/L (136-145) Potassium Level 3.3 mmol/L (3.5-5.1) Chloride Level 105 mmol/L (98-107) Carbon Dioxide Level 30 mmol/L (21-32) Anion Gap 9 (6-14) Blood Urea Nitrogen 19 mg/dL (8-26) Creatinine 1.3 mg/dL (0.7-1.3) Estimated GFR (Cockcroft-Gault) 53.3 BUN/Creatinine Ratio 15 (6-20) Glucose Level 146 mg/dL (70-99) Calcium Level 9.1 mg/dL (8.5-10.1) Total Bilirubin 0.6 mg/dL (0.2-1.0) Aspartate Amino Transf (AST/SGOT) 22 U/L (15-37) Alanine Aminotransferase (ALT/SGPT) 22 U/L (16-63) Alkaline Phosphatase 105 U/L (46-116) Total Protein 7.5 g/dL (6.4-8.2) Albumin 2.9 g/dL (3.4-5.0) Albumin/Globulin Ratio 0.6 (1.0-1.7) Glucose (Fingerstick) 182 mg/dL (70-99) Assessment and Plan Assessmemt and Plan Problems Medical Problems: (1) Pneumonia Status: Acute Comment Review of Relevant I have reviewed the following items juliana (where applicable) has been applied. Medications: Current Medications Medications (Trade) Dose Ordered Sig/Elizabeth Route PRN Reason Start Time Stop Time Status Last Admin Dose Admin Heparin Sodium (Porcine) (Heparin Sodium) 5,000 unit Q8HRS SQ 09/09/21 14:00 09/10/21 05:57 Insulin Glargine (Lantus Syringe) 10 unit QHS SQ 09/09/21 21:00 09/09/21 23:06 Furosemide (Lasix) 40 mg 1X ONCE IVP 09/09/21 14:00 09/09/21 14:01 DC 09/09/21 14:52 Furosemide (Lasix) 40 mg DAILY IVP 09/10/21 09:00 09/10/21 09:57 Amlodipine Besylate (Norvasc) 5 mg 1X ONCE PO 09/09/21 14:00 09/09/21 14:01 DC 09/09/21 14:51 Amlodipine Besylate (Norvasc) 10 mg DAILY PO 09/10/21 09:00 09/10/21 09:56 Lactobacillus Rhamnosus (Culturelle) 1 cap BID PO 09/09/21 21:00 09/10/21 09:55 Justifications for Admission Other Justification ARASH HAYNES MD Sep 10, 2021 12:53
[2021-09-10] MEDS ORDERED: POTASSIUM CHLORIDE 20 MEQ TABLET.ER. PO ONE (13:00)
[2021-09-10] MEDS ORDERED: POTA20TA4 PO (14:11)
[2021-09-10] MEDS ORDERED: PRED20TA PO (14:11)
[2021-09-10] MEDS ORDERED: FURO40TA4 PO (14:11)
[2021-09-10] MEDS ORDERED: DOXY100T PO (14:11)
[2021-09-10] MEDS ORDERED: AMLO2.5T5 PO (14:11)
[2021-09-10 15:00] VITALS: BP 134/75
--- NOTE | 2021-09-10 16:03 | CARD ---
MR#: [id number] Date of Study: 09/10/2021 Ordering Physician: ARASH CRANE, Referring Physician: ARASH CRANE, Tech: Maren Mejia [facility] APPROVED REPORT EXAM: Two-dimensional and M-mode echocardiogram with Doppler and color Doppler. Other Information Quality : AverageHR: 70bpm Rhythm : NSRTechnically limited study due to body habitus. INDICATION Dyspnea RISK FACTORS Hypertension Obesity Hyperlipidemia 2D DIMENSIONS RVDd3.0 (2.9-3.5cm)Left Atrium(2D)4.6 (1.6-4.0cm) IVSd2.6 (0.7-1.1cm)Aortic Root(2D)2.8 (2.0-3.7cm) LVDd3.7 (3.9-5.9cm)LVOT Diameter2.4 (1.8-2.4cm) PWd2.5 (0.7-1.1cm)LVDs2.7 (2.5-4.0cm) FS (%) 27.6 %SV32.0 ml LVEF(%)54.3 (>50%) Aortic Valve AoV Peak Jose.372.9cm/sAoV VTI85.2cm AO Peak GR.55.6mmHgLVOT Peak Jose.127.1cm/s AO Mean GR.33mmHgAVA (VMAX)1.59cm2 AI P 1/2 Legm161ni Tricuspid Valve TR P. Ensnzegr843sp/sTR Peak Gr.51mmHg LEFT VENTRICLE The left ventricle is normal size. There is moderate to severe concentric left ventricular hypertroph y. The left ventricular systolic function is mildly decreased. EF 45% There is mild global hypokinesi s. Transmitral Doppler flow pattern is Grade II-pseudonormal filling dynamics. RIGHT VENTRICLE The right ventricle is normal size. The right ventricle is mildly hypertrophied. The right ventricula r systolic function is normal. ATRIA The left atrium size is normal. The right atrium size is normal. The interatrial septum is intact wit h no evidence for an atrial septal defect or patent foramen ovale as noted on 2-D or Doppler imaging. AORTIC VALVE The aortic valve is calcified and displays decreased opening. Doppler and Color Flow revealed trace a ortic regurgitation. There is moderate supravalvular aortic stenosis. MG 27 mm Hg. VTI DI is 0.34 MITRAL VALVE Moderate calcification with mild malcoaptation. There is no evidence of mitral valve prolapse. There is no mitral valve stenosis. Doppler and Color-flow revealed moderate mitral regurgitation. TRICUSPID VALVE The tricuspid valve is normal in structure and function. Doppler and Color Flow revealed mild tricusp id regurgitation. Estimated PAP 56 mmHg. There is no tricuspid valve stenosis. PULMONIC VALVE Doppler and Color Flow revealed no pulmonic valvular regurgitation. There is no pulmonic valvular leena nosis. GREAT VESSELS The aortic root is normal in size. The ascending aorta is normal in size. The IVC is normal in size a nd collapses >50% with inspiration. PERICARDIAL EFFUSION There is no evidence of significant pericardial effusion. Critical Notification Critical Value: No <Conclusion> The left ventricular systolic function is mildly decreased. EF 45% There is mild global hypokinesis. There is moderate supravalvular aortic stenosis. MG 27 mm Hg. VTI DI is 0.34 Doppler and Color-flow revealed moderate mitral regurgitation. Doppler and Color Flow revealed mild tricuspid regurgitation. Estimated PAP 56 mmHg. Signed by : Se Prajapati, Electronically Approved : 09/10/2021 16:03:11
--- NOTE | 2021-09-10 16:26 | PDOC ---
DENG MCLAUGHLIN [employer] 09/10/21 1626: CARDIO Progress Notes Date and Time Date of Service 09/10/21 Time of Evaluation 1120 Subjective Subjective: No Chest Pain, No Palpitations, Other (SOA improved ) Vitals Vitals Vital Signs Date Time Temp Pulse Resp B/P (MAP) Pulse Ox O2 Delivery O2 Flow Rate FiO2 09/10/21 16:11 Room Air 09/10/21 15:00 97.6 78 16 134/75 (94) 94 2.0 97.6 Weight Weight [ ] Input and Output Intake and Output Intake and Output 09/10/21 06:59 Output Total 1400 ml Balance -1400 ml Output Urine Total 1400 ml # Voids 1 # Bowel Movements 1 Laboratory Labs Laboratory Tests Test 09/09/21 17:02 09/09/21 18:10 09/09/21 20:19 09/10/21 07:26 Glucose (Fingerstick) 225 mg/dL (70-99) 229 mg/dL (70-99) 125 mg/dL (70-99) Troponin I Quantitative 0.178 ng/mL (0.000-0.055) Test 09/10/21 08:50 09/10/21 11:02 Sodium Level 144 mmol/L (136-145) Potassium Level 3.3 mmol/L (3.5-5.1) Chloride Level 105 mmol/L (98-107) Carbon Dioxide Level 30 mmol/L (21-32) Anion Gap 9 (6-14) Blood Urea Nitrogen 19 mg/dL (8-26) Creatinine 1.3 mg/dL (0.7-1.3) Estimated GFR (Cockcroft-Gault) 53.3 BUN/Creatinine Ratio 15 (6-20) Glucose Level 146 mg/dL (70-99) Calcium Level 9.1 mg/dL (8.5-10.1) Magnesium Level 2.0 mg/dL (1.8-2.4) Total Bilirubin 0.6 mg/dL (0.2-1.0) Aspartate Amino Transf (AST/SGOT) 22 U/L (15-37) Alanine Aminotransferase (ALT/SGPT) 22 U/L (16-63) Alkaline Phosphatase 105 U/L (46-116) Total Protein 7.5 g/dL (6.4-8.2) Albumin 2.9 g/dL (3.4-5.0) Albumin/Globulin Ratio 0.6 (1.0-1.7) Glucose (Fingerstick) 182 mg/dL (70-99) Microbiology Micro Microbiology 09/09/21 Blood Culture - Preliminary, Resulted NO GROWTH AFTER 1 DAY Physical Exam HEENT: Neck Supple W Full Motion Chest: Symmetric LUNGS: Other (diminished bases) Heart: RRR, other (2/6 systolic murmur ) Abdomen: Soft N/T Extremities: Other (trace bilateral LE edema) Neurology: alert, oriented, follow commands Assessment Assessment 1. Acute respiratory failure; multifactorial with CHF, AE COPD, and possible PNA 2. Acute on chronic systolic CHF; improved s/p IV diuresis 3. Cardiomyopathy; Echo showed LVEF 45% with mild global hypokinesis, moderate supravalvular , and moderate MR 4. Accelerated hypertension; now controlled 5. Mild troponin elevation; peak 0.2. Most probably type II, demand ischemia 6. LEENA on CPAP therapy. 7. Tobaccoism; discussed/encouraged cessation 8. Hypokalemia; replaced. Recommendations Continue losartan. Add Coreg, spironolactone, ASA therapy Lipid panel Outpatient ischemic evaluation Ongoing pulmonary optimization Supportive care Justicifation of Admission Dx: Justifications for Admission: Justification of Admission Dx: Yes Comments: acute on chronic systolic CHF BERNARD PLASCENCIA MD 09/10/21 1713: CARDIO Progress Notes Plan Plan The patient was seen and interviewed as well as examined at the bedside. The chart was reviewed. The case was discussed. Agree with the plan of care. Given cardiomyopathy, we will consider right and left heart cath on an outpt basis. Could consider inpt cath if no improvement in symptoms in next 24 hours. Thanks DENG MCLAUGHLIN APRN Sep 10, 2021 16:26 BERNARD PLASCENCIA MD Sep 10, 2021 17:13
[2021-09-10 17:03] LABS: CHOLESTEROL/HDL RATIO 1.7
[2021-09-10] MEDS ORDERED: INSULIN LISPRO 300 UNITS/3 ML VIAL. SQ ONE (17:15)
[2021-09-10] MEDS ORDERED: DEXTROSE 50% 25 GM / 50ML DISP.SYRIN. IV PRN (17:15)
[2021-09-10] MEDS: CARVEDILOL 3.125 MG TABLET. PO SCH (17:32)
[2021-09-10 19:42] VITALS: BP 137/79
[2021-09-10] MEDS: NICOTINE 21MG PATCH. TD SCH (23:02)
[2021-09-10] MEDS: INSULIN GLARGINE SYRINGE. SQ SCH (23:04)
[2021-09-10 23:49] VITALS: BP 145/70
[2021-09-11 03:38] VITALS: BP 142/70
[2021-09-11] MEDS: HEPARIN for SUB-Q USE 5,000 UNIT/ML VIAL. SQ SCH (05:42)
[2021-09-11 07:00] VITALS: BP 157/70
[2021-09-11 07:03] LABS: ALBUMIN/GLOBULIN RATIO 0.7 (1.0-1.7); CALCIUM 9.3 mg/dL (8.5-10.1); CREATININE 1.3 mg/dL (0.7-1.3); GFR 53.3; POTASSIUM 3.9 mmol/L (3.5-5.1); TOTAL BILIRUBIN 0.5 mg/dL (0.2-1.0); TOTAL PROTEIN 7.4 g/dL (6.4-8.2)
--- NOTE | 2021-09-11 07:05 | PDOC ---
[employer] PROGRESS NOTE Date of Service DOS: DATE: 09/11/21 TIME: 07:01 Chief Complaint Chief Complaint A/P: Acute respiratory failure with hypoxia - appears to be combination of acute diastolic CHF with acute exacerbation of COPD with bronchitis. Weaning O2 Acute COPD exacerbation - with bronchitis improving on doxycycline and steroids changed to prednisone cont aggressive nebulizers. D/w pulmonology has outpatient follow-up. Type 2 diabetes HTN - on losartan, added amlodipine and lasix per cardiology recs HLD CKD - notable outpatient. He gets his care at [facility], no baseline cr available. H/o afib - sinus currently, not on BB or CCB Acute CHF exacerbation - with left ventricular systolic function is mildly decreased. EF 45% and mild global hypokinesis. Moderate supravalvular aortic stenosis Moderate mitral regurgitation. Mild tricuspid regurgitation. Estimated PAP 56 mmHg. History of Present Illness History of Present Illness Mr Clancy is 81-year-old male with PMHx DM2, smoker, COPD, LEENA on CPAP who presented to the emergency room due to worsening shortness of breath for the past 4 to 5 days. With this current cough there is more productivity to where he is having trouble handling some of his secretions. He denies any home oxygen but felt like he could not catch his breath at home despite using his newly prescribed LABA/ICS and albuterol inhalers. Contacted EMS found him saturating 80% on room air in the field was brought in and nonrebreather brought him up in the 90s. Denies any history of COPD exacerbations he knows of. Reports compliance with inhalers. Received Covid vaccine both Moderna. He was recently taken off diuretics. He is denying any fever chills, dizziness, vision changes, chest pain, abdominal pain, dysuria. 09/10: Weaning down O2. Afebrile. Breathing improved with steroids and diuresis. weight from 127kg to 124kg. 1.4L UOP recorded, though patient has been voiding without measurement as well. He notes outpatient he has been using oxygen concentrator when he travels to [place] he frequently requires it. Echo with global hypokinesis and EF 45%. Started on carvedilol and low-dose spironolactone. 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 Instructed he needs lab work in the next week and follow-up with cardiology BEL Vitals/I&O Vitals/I&O: Vital Signs Date Time Temp Pulse Resp B/P (MAP) Pulse Ox O2 Delivery O2 Flow Rate FiO2 09/11/21 03:38 57 16 142/70 (94) 96 BiPAP/CPAP 09/10/21 23:49 98.5 98.5 09/10/21 15:00 2.0 I & O 09/10/21 09/10/21 09/11/21 15:00 23:00 07:00 Intake Total 480 ml 240 ml 400 ml Output Total 600 ml 300 ml Balance -120 ml -60 ml 400 ml Physical Exam General: Alert, Oriented X3, Cooperative Heart: Regular rate, Normal S1, Normal S2 Lungs: Crackles, Other (Crackles mainly in the base) Abdomen: Normal bowel sounds, Soft Extremities: No clubbing, No cyanosis Skin: No rashes, No breakdown Labs Labs: Laboratory Tests Test 09/10/21 07:26 09/10/21 08:50 09/10/21 11:02 09/10/21 16:21 Glucose (Fingerstick) 125 mg/dL (70-99) 182 mg/dL (70-99) 362 mg/dL (70-99) Sodium Level 144 mmol/L (136-145) Potassium Level 3.3 mmol/L (3.5-5.1) Chloride Level 105 mmol/L (98-107) Carbon Dioxide Level 30 mmol/L (21-32) Anion Gap 9 (6-14) Blood Urea Nitrogen 19 mg/dL (8-26) Creatinine 1.3 mg/dL (0.7-1.3) Estimated GFR (Cockcroft-Gault) 53.3 BUN/Creatinine Ratio 15 (6-20) Glucose Level 146 mg/dL (70-99) Calcium Level 9.1 mg/dL (8.5-10.1) Magnesium Level 2.0 mg/dL (1.8-2.4) Total Bilirubin 0.6 mg/dL (0.2-1.0) Aspartate Amino Transf (AST/SGOT) 22 U/L (15-37) Alanine Aminotransferase (ALT/SGPT) 22 U/L (16-63) Alkaline Phosphatase 105 U/L (46-116) Total Protein 7.5 g/dL (6.4-8.2) Albumin 2.9 g/dL (3.4-5.0) Albumin/Globulin Ratio 0.6 (1.0-1.7) Triglycerides Level 126 mg/dL (0-150) Cholesterol Level 89 mg/dL (0-200) LDL Cholesterol, Calculated 11 mg/dL (0-100) VLDL Cholesterol, Calculated 25 mg/dL (0-40) Non-HDL Cholesterol Calculated 36 mg/dL (0-129) HDL Cholesterol 53 mg/dL (40-60) Cholesterol/HDL Ratio 1.7 Test 09/10/21 20:09 Glucose (Fingerstick) 325 mg/dL (70-99) Assessment and Plan Assessmemt and Plan Problems Medical Problems: (1) Pneumonia Status: Acute Comment Review of Relevant I have reviewed the following items juliana (where applicable) has been applied. Medications: Current Medications Medications (Trade) Dose Ordered Sig/Elizabeth Route PRN Reason Start Time Stop Time Status Last Admin Dose Admin Furosemide (Lasix) 40 mg DAILY IVP 09/10/21 09:00 09/10/21 09:57 Amlodipine Besylate (Norvasc) 10 mg DAILY PO 09/10/21 09:00 09/10/21 16:24 DC 09/10/21 09:56 Perflutren Protein Type A Microsphe (Optison) 0.66 mg 1X ONCE IV 09/10/21 10:00 09/10/21 10:04 DC 09/10/21 10:00 Potassium Chloride (Klor-Con) 40 meq 1X ONCE PO 09/10/21 13:00 09/10/21 13:01 DC 09/10/21 15:32 Carvedilol (Coreg) 3.125 mg BIDWMEALS PO 09/10/21 17:00 09/10/21 17:32 Insulin Human Lispro (HumaLOG) 16 units 1X ONCE SQ 09/10/21 17:15 09/10/21 17:19 DC 09/10/21 17:31 Nicotine (Nicoderm Cq 21mg) 1 patch DAILY TD 09/10/21 23:00 09/10/21 23:02 Justifications for Admission Other Justification ARASH HAYNES MD Sep 11, 2021 07:05
[2021-09-11] MEDS: IPRATRPIUM/ALBUTEROL 0.5/2.5MG 3 ML NEBU. NEB SCH ×2 (07:16→11:23)
[2021-09-11] MEDS: INSULIN LISPRO 300 UNITS/3 ML VIAL. SQ SCH ×2 (08:00→12:02)
[2021-09-11] MEDS ORDERED: ASPIRIN ENTERIC COATED 81 MG TABLET.DR. PO SCH (08:00)
--- NOTE | 2021-09-11 08:37 | PDOC ---
PULMONARY PROGRESS NOTES DATE: 09/11/21 TIME: 08:37 Subjective Patient now more short of air, ready to discharge Vitals Vital Signs Date Time Temp Pulse Resp B/P (MAP) Pulse Ox O2 Delivery O2 Flow Rate FiO2 09/11/21 07:16 96 Room Air 09/11/21 07:00 98.5 67 20 157/70 (99) 2.0 98.5 ROS: No Nausea, No Chest Pain, No Abdominal Pain, No Increase Cough Lungs: Crackles, Other (Crackles mainly in the base) Cardiovascular: S1, S2 Abdomen: Soft Neuro Exam: Alert Extremities: No Edema Skin: Warm Labs Laboratory Tests Test 09/09/21 11:43 09/09/21 17:02 09/09/21 18:10 09/09/21 20:19 Glucose (Fingerstick) 258 mg/dL (70-99) 225 mg/dL (70-99) 229 mg/dL (70-99) Troponin I Quantitative 0.178 ng/mL (0.000-0.055) Test 09/10/21 07:26 09/10/21 08:50 09/10/21 11:02 09/10/21 16:21 Glucose (Fingerstick) 125 mg/dL (70-99) 182 mg/dL (70-99) 362 mg/dL (70-99) Sodium Level 144 mmol/L (136-145) Potassium Level 3.3 mmol/L (3.5-5.1) Chloride Level 105 mmol/L (98-107) Carbon Dioxide Level 30 mmol/L (21-32) Anion Gap 9 (6-14) Blood Urea Nitrogen 19 mg/dL (8-26) Creatinine 1.3 mg/dL (0.7-1.3) Estimated GFR (Cockcroft-Gault) 53.3 BUN/Creatinine Ratio 15 (6-20) Glucose Level 146 mg/dL (70-99) Calcium Level 9.1 mg/dL (8.5-10.1) Magnesium Level 2.0 mg/dL (1.8-2.4) Total Bilirubin 0.6 mg/dL (0.2-1.0) Aspartate Amino Transf (AST/SGOT) 22 U/L (15-37) Alanine Aminotransferase (ALT/SGPT) 22 U/L (16-63) Alkaline Phosphatase 105 U/L (46-116) Total Protein 7.5 g/dL (6.4-8.2) Albumin 2.9 g/dL (3.4-5.0) Albumin/Globulin Ratio 0.6 (1.0-1.7) Triglycerides Level 126 mg/dL (0-150) Cholesterol Level 89 mg/dL (0-200) LDL Cholesterol, Calculated 11 mg/dL (0-100) VLDL Cholesterol, Calculated 25 mg/dL (0-40) Non-HDL Cholesterol Calculated 36 mg/dL (0-129) HDL Cholesterol 53 mg/dL (40-60) Cholesterol/HDL Ratio 1.7 Test 09/10/21 20:09 09/11/21 05:35 09/11/21 07:35 Glucose (Fingerstick) 325 mg/dL (70-99) 147 mg/dL (70-99) Sodium Level 146 mmol/L (136-145) Potassium Level 3.9 mmol/L (3.5-5.1) Chloride Level 106 mmol/L (98-107) Carbon Dioxide Level 31 mmol/L (21-32) Anion Gap 9 (6-14) Blood Urea Nitrogen 22 mg/dL (8-26) Creatinine 1.3 mg/dL (0.7-1.3) Estimated GFR (Cockcroft-Gault) 53.3 BUN/Creatinine Ratio 17 (6-20) Glucose Level 123 mg/dL (70-99) Calcium Level 9.3 mg/dL (8.5-10.1) Total Bilirubin 0.5 mg/dL (0.2-1.0) Aspartate Amino Transf (AST/SGOT) 23 U/L (15-37) Alanine Aminotransferase (ALT/SGPT) 25 U/L (16-63) Alkaline Phosphatase 99 U/L (46-116) Total Protein 7.4 g/dL (6.4-8.2) Albumin 3.0 g/dL (3.4-5.0) Albumin/Globulin Ratio 0.7 (1.0-1.7) Laboratory Tests Test 09/10/21 08:50 09/10/21 11:02 09/10/21 16:21 09/10/21 20:09 Sodium Level 144 mmol/L (136-145) Potassium Level 3.3 mmol/L (3.5-5.1) Chloride Level 105 mmol/L (98-107) Carbon Dioxide Level 30 mmol/L (21-32) Anion Gap 9 (6-14) Blood Urea Nitrogen 19 mg/dL (8-26) Creatinine 1.3 mg/dL (0.7-1.3) Estimated GFR (Cockcroft-Gault) 53.3 BUN/Creatinine Ratio 15 (6-20) Glucose Level 146 mg/dL (70-99) Calcium Level 9.1 mg/dL (8.5-10.1) Magnesium Level 2.0 mg/dL (1.8-2.4) Total Bilirubin 0.6 mg/dL (0.2-1.0) Aspartate Amino Transf (AST/SGOT) 22 U/L (15-37) Alanine Aminotransferase (ALT/SGPT) 22 U/L (16-63) Alkaline Phosphatase 105 U/L (46-116) Total Protein 7.5 g/dL (6.4-8.2) Albumin 2.9 g/dL (3.4-5.0) Albumin/Globulin Ratio 0.6 (1.0-1.7) Triglycerides Level 126 mg/dL (0-150) Cholesterol Level 89 mg/dL (0-200) LDL Cholesterol, Calculated 11 mg/dL (0-100) VLDL Cholesterol, Calculated 25 mg/dL (0-40) Non-HDL Cholesterol Calculated 36 mg/dL (0-129) HDL Cholesterol 53 mg/dL (40-60) Cholesterol/HDL Ratio 1.7 Glucose (Fingerstick) 182 mg/dL (70-99) 362 mg/dL (70-99) 325 mg/dL (70-99) Test 09/11/21 05:35 09/11/21 07:35 Sodium Level 146 mmol/L (136-145) Potassium Level 3.9 mmol/L (3.5-5.1) Chloride Level 106 mmol/L (98-107) Carbon Dioxide Level 31 mmol/L (21-32) Anion Gap 9 (6-14) Blood Urea Nitrogen 22 mg/dL (8-26) Creatinine 1.3 mg/dL (0.7-1.3) Estimated GFR (Cockcroft-Gault) 53.3 BUN/Creatinine Ratio 17 (6-20) Glucose Level 123 mg/dL (70-99) Calcium Level 9.3 mg/dL (8.5-10.1) Total Bilirubin 0.5 mg/dL (0.2-1.0) Aspartate Amino Transf (AST/SGOT) 23 U/L (15-37) Alanine Aminotransferase (ALT/SGPT) 25 U/L (16-63) Alkaline Phosphatase 99 U/L (46-116) Total Protein 7.4 g/dL (6.4-8.2) Albumin 3.0 g/dL (3.4-5.0) Albumin/Globulin Ratio 0.7 (1.0-1.7) Glucose (Fingerstick) 147 mg/dL (70-99) Medications Active Scripts Medications Dose Route/Sig Max Daily Dose Days Date Category Victoza 3-Chintan (Liraglutide) 0.6 Mg/0.1 Ml Pen.injctr 1.8 Mg SQ DAILY 09/09/21 Reported Tramadol Hcl 50 Mg Tablet 50 Mg PO TID PRN PRN 09/09/21 Reported Micardis (Telmisartan) 80 Mg Tablet 80 Mg PO DAILY 09/09/21 Reported Repatha Sureclick (Evolocumab) 140 Mg/1 Ml Pen.injctr 140 Mg SQ Q2WKS 09/09/21 Reported Glipizide 5 Mg Tablet 5 Mg PO DAILYWSUP 09/09/21 Reported Glipizide 10 Mg Tablet 10 Mg PO DAILY08 09/09/21 Reported Gabapentin (Gabapentin) 300 Mg Capsule 300 Mg PO TID 09/09/21 Reported Colcrys (Colchicine) 0.6 Mg Tablet 0.6 Mg PO PRN DAILY PRN 09/09/21 Reported Anoro Ellipta 62.5-25 Mcg Inh (Umeclidinium Brm/Vilanterol Tr) 1 Each Disk.w.dev 1 Each IH DAILY 09/09/21 Reported Allopurinol 300 Mg Tablet 300 Mg PO DAILY 09/09/21 Reported Proair Respiclick (Albuterol Sulfate) 90 Mcg Aer.pow.ba 2 Puff IH PRN Q4HRS PRN 09/09/21 Reported Impression . IMPRESSION: 1. Acute hypoxemic respiratory failure. 2. Acute on chronic heart failure 3. Acute exacerbation of chronic obstructive pulmonary disease. 4. Possible bacterial pneumonia. 5. Chronic heart failure. 6. Obstructive sleep apnea. 7. Tobacco dependent. 8. Obesity. 9. SARS-CoV-2 testing, negative Plan . Updated 09/10 Okay to discharge Follow-up with his pulmonary physician at [facility] updated 09/10 Patient did well with IV Lasix, feels better Continue treatment of acute exacerbation of COPD Possible discharge in the a.m. Discussed with SHLOMO Null MD Sep 11, 2021 08:37
[2021-09-11] MEDS: CARVEDILOL 3.125 MG TABLET. PO SCH (08:57)
[2021-09-11] MEDS: predniSONE 20 MG TABLET PO SCH (08:58)
[2021-09-11] MEDS: SENNOSIDES/DOCUSATE 8.6/50MG TABLET. PO SCH (08:58)
[2021-09-11] MEDS: GABAPENTIN 300 MG CAPSULE. PO SCH (08:58)
[2021-09-11] MEDS: LOSARTAN POTASSIUM 50 MG TABLET. PO SCH (08:58)
[2021-09-11] MEDS: LACTOBACILLUS RHAMNOSUS GG 1 CAPSULE. PO SCH (08:58)
[2021-09-11] MEDS: FUROSEMIDE 40 MG/4 ML VIAL. IVP SCH (08:59)
[2021-09-11] MEDS: ALLOPURINOL 300 MG TABLET. PO SCH (08:59)
[2021-09-11] MEDS: DOXYCYCLINE HYCLATE 100 MG TABLET PO SCH (08:59)
[2021-09-11] MEDS ORDERED: SPIRONOLACTONE 25 MG TABLET PO SCH (09:00)
[2021-09-11] MEDS ORDERED: NICOTINE 21MG PATCH. TD SCH (09:00)
[2021-09-11] MEDS: NICOTINE 21MG PATCH. TD SCH (09:00)
[2021-09-11 11:00] VITALS: BP 150/70
[2021-09-11] MEDS ORDERED: SPIR25TA PO (11:35)
[2021-09-11] MEDS ORDERED: CARV3.1210 PO (11:35)
--- NOTE | 2021-09-11 11:49 | PDOC3 ---
Discharge Summary Visit Information Date of Admission: Sep 09, 2021 Date of Discharge: Sep 11, 2021 Admitting Diagnosis: Acute Hypoxia Final Diagnosis Problems Medical Problems: (1) Pneumonia Status: Acute Brief Hospital Course Allergies Allergies Coded Allergies Type Severity Reaction Last Updated Verified NSAIDS (Non-Steroidal Anti-Inflamma Allergy Intermediate 09/08/21 Yes [id number] Reductase Inhibitor Allergy Intermediate 09/08/21 Yes fish oil Allergy Intermediate 09/08/21 Yes Vital Signs Vital Signs Date Time Temp Pulse Resp B/P (MAP) Pulse Ox O2 Delivery O2 Flow Rate FiO2 09/11/21 08:59 67 157/70 09/11/21 08:30 Room Air 09/11/21 07:16 96 09/11/21 07:00 98.5 20 2.0 98.5 Lab Results Laboratory Tests Test 09/09/21 17:02 09/09/21 18:10 09/09/21 20:19 09/10/21 07:26 Glucose (Fingerstick) 225 mg/dL (70-99) 229 mg/dL (70-99) 125 mg/dL (70-99) Troponin I Quantitative 0.178 ng/mL (0.000-0.055) Test 09/10/21 08:50 09/10/21 11:02 09/10/21 16:21 09/10/21 20:09 Sodium Level 144 mmol/L (136-145) Potassium Level 3.3 mmol/L (3.5-5.1) Chloride Level 105 mmol/L (98-107) Carbon Dioxide Level 30 mmol/L (21-32) Anion Gap 9 (6-14) Blood Urea Nitrogen 19 mg/dL (8-26) Creatinine 1.3 mg/dL (0.7-1.3) Estimated GFR (Cockcroft-Gault) 53.3 BUN/Creatinine Ratio 15 (6-20) Glucose Level 146 mg/dL (70-99) Calcium Level 9.1 mg/dL (8.5-10.1) Magnesium Level 2.0 mg/dL (1.8-2.4) Total Bilirubin 0.6 mg/dL (0.2-1.0) Aspartate Amino Transf (AST/SGOT) 22 U/L (15-37) Alanine Aminotransferase (ALT/SGPT) 22 U/L (16-63) Alkaline Phosphatase 105 U/L (46-116) Total Protein 7.5 g/dL (6.4-8.2) Albumin 2.9 g/dL (3.4-5.0) Albumin/Globulin Ratio 0.6 (1.0-1.7) Triglycerides Level 126 mg/dL (0-150) Cholesterol Level 89 mg/dL (0-200) LDL Cholesterol, Calculated 11 mg/dL (0-100) VLDL Cholesterol, Calculated 25 mg/dL (0-40) Non-HDL Cholesterol Calculated 36 mg/dL (0-129) HDL Cholesterol 53 mg/dL (40-60) Cholesterol/HDL Ratio 1.7 Glucose (Fingerstick) 182 mg/dL (70-99) 362 mg/dL (70-99) 325 mg/dL (70-99) Test 09/11/21 05:35 09/11/21 07:35 Sodium Level 146 mmol/L (136-145) Potassium Level 3.9 mmol/L (3.5-5.1) Chloride Level 106 mmol/L (98-107) Carbon Dioxide Level 31 mmol/L (21-32) Anion Gap 9 (6-14) Blood Urea Nitrogen 22 mg/dL (8-26) Creatinine 1.3 mg/dL (0.7-1.3) Estimated GFR (Cockcroft-Gault) 53.3 BUN/Creatinine Ratio 17 (6-20) Glucose Level 123 mg/dL (70-99) Calcium Level 9.3 mg/dL (8.5-10.1) Total Bilirubin 0.5 mg/dL (0.2-1.0) Aspartate Amino Transf (AST/SGOT) 23 U/L (15-37) Alanine Aminotransferase (ALT/SGPT) 25 U/L (16-63) Alkaline Phosphatase 99 U/L (46-116) Total Protein 7.4 g/dL (6.4-8.2) Albumin 3.0 g/dL (3.4-5.0) Albumin/Globulin Ratio 0.7 (1.0-1.7) Glucose (Fingerstick) 147 mg/dL (70-99) Laboratory Tests Test 09/10/21 16:21 09/10/21 20:09 09/11/21 05:35 09/11/21 07:35 Glucose (Fingerstick) 362 mg/dL (70-99) 325 mg/dL (70-99) 147 mg/dL (70-99) Sodium Level 146 mmol/L (136-145) Potassium Level 3.9 mmol/L (3.5-5.1) Chloride Level 106 mmol/L (98-107) Carbon Dioxide Level 31 mmol/L (21-32) Anion Gap 9 (6-14) Blood Urea Nitrogen 22 mg/dL (8-26) Creatinine 1.3 mg/dL (0.7-1.3) Estimated GFR (Cockcroft-Gault) 53.3 BUN/Creatinine Ratio 17 (6-20) Glucose Level 123 mg/dL (70-99) Calcium Level 9.3 mg/dL (8.5-10.1) Total Bilirubin 0.5 mg/dL (0.2-1.0) Aspartate Amino Transf (AST/SGOT) 23 U/L (15-37) Alanine Aminotransferase (ALT/SGPT) 25 U/L (16-63) Alkaline Phosphatase 99 U/L (46-116) Total Protein 7.4 g/dL (6.4-8.2) Albumin 3.0 g/dL (3.4-5.0) Albumin/Globulin Ratio 0.7 (1.0-1.7) Brief Hospital Course Mr Clancy is 81-year-old male with PMHx DM2, smoker, COPD, LEENA on CPAP who presented to the emergency room due to worsening shortness of breath for the past 4 to 5 days. With this current cough there is more productivity to where he is having trouble handling some of his secretions. He denies any home oxygen but felt like he could not catch his breath at home despite using his newly prescribed LABA/ICS and albuterol inhalers. Contacted EMS found him saturating 80% on room air in the field was brought in and nonrebreather brought him up in the 90s. Denies any history of COPD exacerbations he knows of. Reports compliance with inhalers. Received Covid vaccine both Moderna. He was recently taken off diuretics. He is denying any fever chills, dizziness, vision changes, chest pain, abdominal pain, dysuria. 09/10: Weaning down O2. Afebrile. Breathing improved with steroids and diuresis. weight from 127kg to 124kg. 1.4L UOP recorded, though patient has been voiding without measurement as well. He notes outpatient he has been using oxygen concentrator when he travels to [place] he frequently requires it. Echo with global hypokinesis and EF 45%. Started on carvedilol and low-dose spironolactone. Cardiology discussed right and left heart catheterization and patient with prefer to follow-up outpatient with his primary manager strategy & account at [facility]. Instructed he needs lab work in the next week and follow-up with cardiology [facility] Consults: Pulmonology and cardiology Problem list: Acute respiratory failure with hypoxia - appears to be combination of acute diastolic CHF with acute exacerbation of COPD with bronchitis. Weaning O2. Steroids and doxycycline Acute COPD exacerbation - with bronchitis improving on doxycycline and steroids changed to prednisone cont aggressive nebulizers. D/w pulmonology has outpatient follow-up. Type 2 diabetes HTN - on losartan, added amlodipine and lasix per cardiology recs HLD - on repatha, not statin tolerant CKD - notable outpatient. He gets his care at [facility], [facility], no baseline cr available. H/o afib - sinus currently, not on BB or CCB Acute CHF exacerbation - with left ventricular systolic function is mildly decreased. EF 45% and mild global hypokinesis. Added coreg, aldactone. F/u with primary manager strategy & account Moderate supravalvular aortic stenosis Moderate mitral regurgitation. Mild tricuspid regurgitation. Estimated PAP 56 mmHg. Greater than 30 minutes spent on d/c Discharge Information Condition at Discharge: Improved Follow Up: Weeks Disposition/Orders: D/C to Home Scheduled Allopurinol (Allopurinol) 300 Mg Tablet, 300 MG PO DAILY for gout, (Reported) Entered as Reported by: NIDHI MCRAE on 09/09/21 0743 Last Action: Continued on 09/09/21 0907 by ARASH CRANE MD Amlodipine Besylate (Amlodipine Besylate) 2.5 Mg Tablet, 2.5 MG PO DAILY for HTN for 30 Days, #30 Prescribed by: ARASH HAYNES MD on 09/10/21 1411 Carvedilol (Carvedilol ) 3.125 Mg Tablet, 3.125 MG PO BIDWMEALS for CHF for 30 Days, #60 Ref 2 Prescribed by: ARASH HAYNES MD on 09/11/21 1135 Doxycycline Hyclate (Doxycycline Hyclate) 100 Mg Tablet, 100 MG PO BID for COPD for 5 Days, #10 Prescribed by: ARASH HAYNES MD on 09/10/211410 Evolocumab (Repatha Sureclick) 140 Mg/1 Ml Pen.injctr, 140 MG SQ Q2WKS for reducing cholesterol, (Reported) Entered as Reported by: NIDHI MCRAE on 09/09/21742 Last Action: HELD on 09/09/21906 by ARASH CRANE MD Furosemide (Furosemide) 40 Mg Tablet, 1 TAB PO DAILY for Weight gain, fluid for 30 Days, #30 Ref 0 Prescribed by: ARASH HAYNES MD on 09/10/211410 Gabapentin (Gabapentin ) 300 Mg Capsule, 300 MG PO TID for NEUROGENIC PAIN, (Reported) Entered as Reported by: NIDHI MCRAE on 09/09/21742 Last Action: Continued on 09/09/21906 by ARASH CRANE MD Glipizide (Glipizide) 10 Mg Tablet, 10 MG PO DAILY08 for diabetes, (Reported) Entered as Reported by: NIDHI MCRAE on 09/09/21742 Last Action: HELD on 09/09/21906 by ARASH CRANE MD Glipizide (Glipizide) 5 Mg Tablet, 5 MG PO DAILYWSUP for diabetes, (Reported) Entered as Reported by: NIDHI MCRAE on 09/09/21742 Last Action: HELD on 09/09/21906 by ARASH CRANE MD Liraglutide (Victoza 3-Chintan) 0.6 Mg/0.1 Ml Pen.injctr, 1.8 MG SQ DAILY for diabetes, #27 Ref 3 (Reported) Entered as Reported by: NIDHI MCRAE on 09/09/21742 Last Action: HELD on 09/09/21906 by ARASH CRANE MD Potassium Chloride (Potassium Chloride ) 20 Meq Tablet.er, 20 MEQ PO DAILY for SUPPLEMENT for 30 Days, #30 Prescribed by: ARASH HAYNES MD on 09/10/211410 Prednisone (Prednisone) 20 Mg Tablet, 40 MG PO DAILY for COPD for 5 Days, #10 Prescribed by: ARASH HAYNES MD on 09/10/211410 Spironolactone (Aldactone) 25 Mg Tablet, 12.5 MG PO DAILY for CHF for 30 Days, #15 Ref 2 Prescribed by: ARASH HAYNES MD on 09/11/21 113 Telmisartan (Micardis) 80 Mg Tablet, 80 MG PO DAILY for hypertension, (Reported) Entered as Reported by: NIDHI MCRAE on 09/09/21742 Last Action: Converted on 09/09/21906 by ARASH CRANE MD Umeclidinium Brm/Vilanterol Tr (Anoro Ellipta 62.5-25 Mcg Inh) 1 Each Disk.w.dev, 1 EACH IH DAILY for copd, (Reported) Entered as Reported by: NIDHI MCRAE on 09/09/21742 Last Action: Converted on 09/09/21906 by ARASH CRANE MD Scheduled PRN Albuterol Sulfate (Proair Respiclick) 90 Mcg Aer.pow.ba, 2 PUFF IH PRN Q4HRS PRN for shortness of breath, #1 Ref 0 (Reported) Entered as Reported by: NIDHI MCRAE on 09/09/21742 Last Action: HELD on 09/09/21906 by ARASH CRANE MD Colchicine (Colcrys) 0.6 Mg Tablet, 0.6 MG PO PRN DAILY PRN for gout flair up, (Reported) Entered as Reported by: NIDHI MCRAE on 09/09/21742 Last Action: HELD on 09/09/21906 by ARASH CRANE MD Tramadol Hcl (Tramadol Hcl) 50 Mg Tablet, 50 MG PO TID PRN PRN for PAIN, (Reported) Entered as Reported by: NIDHI MCRAE on 09/09/21742 Last Action: Continued on 09/09/21906 by ARASH CRANE MD Justicifation of Admission Dx: Justifications for Admission: Justification of Admission Dx: Yes ARASH HAYNES MD Sep 11, 2021 11:49
--- NOTE | 2021-09-11 14:35 | NUR ---
Pt left unit at 1425 by wheelchair via private vehicle, accompanied by granddaughter. Pt's IV removed without complication, VSS. Discharge paperwork discussed with pt and granddaughter, additional questions addressed.
--- NOTE | 2021-09-11 23:03 | PDOC ---
CARDIOLOGY PROGRESS NOTE SUBJECTIVE: No events overnight. Reports feeling better Not interested in cath. OBJECTIVE: Vital Signs/I&O: Vital Signs Date Time Temp Pulse Resp B/P (MAP) Pulse Ox O2 Delivery O2 Flow Rate FiO2 09/11/21 11:23 Room Air 09/11/21 11:00 97.9 63 20 150/70 (96) 94 2.0 97.9 I & O 09/10/21 09/10/21 09/11/21 15:00 23:00 07:00 Intake Total 480 ml 240 ml 400 ml Output Total 600 ml 300 ml Balance -120 ml -60 ml 400 ml Objective: GEN.: No apparent distress. Alert and oriented. HEENT: Head is normocephalic, atraumatic NECK: Supple. LUNGS: Bilateral end exp wheezing HEART: RRR, S1, S2 present. Peripheral pulses intact ABDOMEN: Soft, nontender. Positive bowel sounds. EXTREMITIES: Without any cyanosis. NEUROLOGIC: Normal speech, normal tone PSYCHIATRIC: Normal affect, normal mood. SKIN: No ulcerations CURRENT MEDICATIONS: Current Medications Medications (Trade) Dose Ordered Sig/Elizabeth Route PRN Reason Start Time Stop Time Status Last Admin Dose Admin Amlodipine Besylate (Norvasc) 5 mg DAILY PO 09/11/21 09:00 09/11/21 14:38 DC 09/11/21 08:59 Spironolactone (Aldactone) 25 mg DAILY PO 09/11/21 09:00 09/11/21 14:38 DC 09/11/21 08:59 Aspirin (Ecotrin) 81 mg DAILYWBKFT PO 09/11/21 08:00 09/11/21 14:38 DC 09/11/21 08:57 Insulin Human Lispro (HumaLOG) 0-9 UNITS TIDWMEALS SQ 09/11/21 08:00 09/11/21 14:38 DC 09/11/21 12:02 DIAGNOSTIC TESTING: Labs reviewed Labs: Laboratory Tests 09/11/21 05:35 Laboratory Tests Test 09/11/21 05:35 09/11/21 07:35 09/11/21 11:47 Sodium Level 146 mmol/L (136-145) H Potassium Level 3.9 mmol/L (3.5-5.1) Chloride Level 106 mmol/L (98-107) Carbon Dioxide Level 31 mmol/L (21-32) Anion Gap 9 (6-14) Blood Urea Nitrogen 22 mg/dL (8-26) Creatinine 1.3 mg/dL (0.7-1.3) Estimated GFR (Cockcroft-Gault) 53.3 BUN/Creatinine Ratio 17 (6-20) Glucose Level 123 mg/dL (70-99) H Calcium Level 9.3 mg/dL (8.5-10.1) Total Bilirubin 0.5 mg/dL (0.2-1.0) Aspartate Amino Transf (AST/SGOT) 23 U/L (15-37) Alkaline Phosphatase 99 U/L (46-116) Total Protein 7.4 g/dL (6.4-8.2) Albumin 3.0 g/dL (3.4-5.0) L Albumin/Globulin Ratio 0.7 (1.0-1.7) L Glucose (Fingerstick) 147 mg/dL (70-99) H 243 mg/dL (70-99) H ASSESSMENT: ASSESSMENT: 1. Acute diastolic HF in the setting of severe hypoxia, possibly related to viral or bacterial PNA 2. COPD with continued tobacco abuse. 3. HTN - uncontrolled 4. LEENA on CPAP therapy. 5. Moderate PLAN: 1. Continue treatment of pulmonary issues. 2. I have low suspicion for a primary ischemic process based on presentation and EKG but given risk factors, he merits outpatient evaluation. . 3. Continue home losartan. He will f/u with Dr. Dwyer and consider outpt cath. Thanks. Discussed with Dr. Escobar Justicifation of Admission Dx: Justifications for Admission: Justification of Admission Dx: Yes BERNARD PLASCENCIA MD Sep 11, 2021 23:03
== END 2021-09-11 14:38 | disposition home or self-care (01) | DRG 177 ==
LOC: ER 22:23 → 5 NORTH 09-09 00:30
PROVIDERS: ADMIT Internal Medicine; ATTEND Internal Medicine
PROC: 5A09357 Assistance with Respiratory Ventilation, Less than 24 Consecutive Hours, Continuous Positive Airway Pressure (ICD-10-PCS; principal; 2021-09-10)
PROC: 5A09357 Assistance with Respiratory Ventilation, Less than 24 Consecutive Hours, Continuous Positive Airway Pressure (ICD-10-PCS; 2021-09-11)
DX: J15.6 Pneumonia due to other Gram-negative bacteria (principal); J96.01 Acute respiratory failure with hypoxia; I50.43 Acute on chronic combined systolic (congestive) and diastolic (congestive) heart failure; I13.0 Hypertensive heart and chronic kidney disease with heart failure and stage 1 through stage 4 chronic kidney disease, or unspecified chronic kidney disease; I24.8 Other forms of acute ischemic heart disease; I42.9 Cardiomyopathy, unspecified; J44.0 Chronic obstructive pulmonary disease with (acute) lower respiratory infection; J44.1 Chronic obstructive pulmonary disease with (acute) exacerbation; E11.22 Type 2 diabetes mellitus with diabetic chronic kidney disease; E66.9 Obesity, unspecified; E78.5 Hyperlipidemia, unspecified; E87.6 Hypokalemia; F17.200 Nicotine dependence, unspecified, uncomplicated; G47.33 Obstructive sleep apnea (adult) (pediatric); I08.0 Rheumatic disorders of both mitral and aortic valves; I48.91 Unspecified atrial fibrillation; N18.9 Chronic kidney disease, unspecified; Z23 Encounter for immunization; Z79.4 Long term (current) use of insulin; Z79.899 Other long term (current) drug therapy; Z82.49 Family history of ischemic heart disease and other diseases of the circulatory system; Z86.79 Personal history of other diseases of the circulatory system; Z20.822 Contact with and (suspected) exposure to COVID-19; Z68.37 Body mass index [BMI] 37.0-37.9, adult; Z88.8 Allergy status to other drugs, medicaments and biological substances; Z91.018 Allergy to other foods
CPT/HCPCS: 36415; 36600; 71045; 80048; 80053; 80061; 82805; 82962; 83605; 83735; 83880; 84484; 85025; 85379; 87040; 87426; 87804; 93005; 94640; 94760; 96374; C8929; J0295; J0456; J0696; J1644; J1815; J1940; J7512; Q9956; U0003; U0005; 99285-25; G0378; J7613